=== PATIENT | female | born 1980 | race Caucasian/White ===

== ENCOUNTER 2022-03-04 14:18 | Emergency (ER) | payer OTHER ==
[2022-03-04 15:03] VITALS: TEMP 98.4
[2022-03-04] MEDS ORDERED: FLUORESCEIN STRIPS 1 MG STRIP LEFT EYE ONE (16:09)
[2022-03-04] MEDS ORDERED: KETOROLAC 15 MG/ML 1 ML VIAL IM STA (16:09)
[2022-03-04] MEDS ORDERED: PROPARACAINE 0.5% OPHTH DROPS 15 ML BTL LEFT EYE STA (16:17)
[2022-03-04] MEDS ORDERED: ACYCLOVIR 400 MG/10 ML CUP PO ONE (17:23)
[2022-03-04] MEDS ORDERED: ERYTHROMYCIN 5 MG/GM OPHTH OINT 3.5 GM TUBE LEFT EYE STA (17:24)
--- NOTE | 2022-03-04 17:26 | ED ---
Eye Problem HPI - General Chief complaint: Eye Problems Stated complaint: L eye issue Time Seen by Provider: 03/04/22 15:19 Source: patient Mode of arrival: ambulatory Limitations: no limitations - History of Present Illness Initial comments: Patient is a 41-year-old female who presents to the emergency department with a chief complaint of left eye pain. Patient states symptoms started yesterday when she woke up. There is some pain with eye movement. She denies injury and trauma to the eye. She also reports redness of eye with clear drainage from the eye, blurry vision, and sensitivity to light. She denies double vision, upper respiratory symptoms. Denies contact lens use. - Related Data Home Medications Medication Instructions Recorded Confirmed Acetaminophen [Tylenol] 325 cap PO Q4H PRN 03/04/22 03/04/22 Multivitamin/Iron/Folic Acid 1 tab PO DAILY 03/04/22 03/04/22 [Centrum Women Tablet] Pregabalin 100 mg PO BID 03/04/22 03/04/22 Sertraline [Zoloft] 100 mg PO PC-LUNCH 03/04/22 03/04/22 Previous Rx's Medication Instructions Recorded Acyclovir [Zovirax] 400 mg PO 5XD #25 tablet 03/04/22 Ibuprofen [Motrin] 800 mg PO Q6HR PRN #30 tab 03/04/22 Allergies Allergy/AdvReac Type Severity Reaction Status Date / Time fluconazole [From Diflucan] Allergy Rash/Hives Verified 03/04/22 17:20 Penicillins Allergy Rash/Hives Verified 03/04/22 17:20 Sulfa (Sulfonamide Allergy Rash/Hives Verified 03/04/22 17:20 Antibiotics) sulfamethoxazole Allergy Rash/Hives Verified 03/04/22 17:20 [From Bactrim] trimethoprim [From Bactrim] Allergy Rash/Hives Verified 03/04/22 17:20 Review of Systems ROS Statement: Those systems with pertinent positive or pertinent negative responses have been documented in the HPI. ROS Other: All systems not noted in ROS Statement are negative. Past Medical History Past Medical History: No Reported History History of Any Multi-Drug Resistant Organisms: None Reported Past Surgical History: Section Past Psychological History: No Psychological Hx Reported Smoking Status: Never smoker Past Alcohol Use History: None Reported Past Drug Use History: None Reported General Exam Limitations: no limitations General appearance: alert, in no apparent distress Head exam: Present: atraumatic, normocephalic, normal inspection Eye exam: Present: PERRL, EOMI, conjunctival injection (left ). Absent: normal appearance, scleral icterus, periorbital swelling, periorbital tenderness Pupils: Present: normal accommodation ENT exam: Present: normal oropharynx Respiratory exam: Present: normal lung sounds bilaterally. Absent: respiratory distress, wheezes, rales, rhonchi, stridor Cardiovascular Exam: Present: regular rate, normal rhythm, normal heart sounds. Absent: systolic murmur, diastolic murmur, rubs, gallop, clicks Neurological exam: Present: alert, oriented X3, CN II-XII intact Psychiatric exam: Present: normal affect, normal mood Skin exam: Present: warm, dry, intact, normal color. Absent: rash Course Vital Signs 03/04/22 03/04/22 15:01 17:53 Temperature 98.4 F Pulse Rate 81 71 Respiratory 16 18 Rate Blood Pressure 143/89 138/99 O2 Sat by Pulse 97 98 Oximetry Medical Decision Making - Medical Decision Making This is a 41-year-old presenting with left eye pain. There is no periorbital tenderness or swelling. PERRL. Banuelos lamp examination reveals dendritic lesion over the left pupil. Denies history of oral and genital herpes. She does admit to history of chickenpox. Patient will be treated with acyclovir. First dose given in the emergency department. Patient also given erythromycin ointment prophylactically. 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 Return parameters discussed. Dr. Cleaning is my attending. 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 Apply ointment every 8 hours for the next 3-5 days or until further instructed by ophthalmology. Please follow up with ophthalmology in one to 2 days. Return to the emergency department if you experience new, concerning, or worsening symptoms. Prescriptions: Ibuprofen [Motrin] 800 mg PO Q6HR PRN #30 tab PRN Reason: Pain Acyclovir [Zovirax] 400 mg PO 5XD #25 tablet Is patient prescribed a controlled substance at d/c from ED?: No Referrals: None,Stated [Primary Care Provider] - 1-2 days Time of Disposition: 17:26
[2022-03-04 17:55] VITALS: BP 138/99; PULSE 71; RESP 18
== END 2022-03-04 17:55 | disposition home or self-care (01) ==
LOC: EC 14:18
DX: B00.52 Herpesviral keratitis (principal); Z88.0 Allergy status to penicillin; Z88.2 Allergy status to sulfonamides
CPT/HCPCS: 99283; 96372; J1885

== ENCOUNTER → 2023-01-14 | Outpatient (CLI) | payer OTHER ==
--- NOTE | 2023-01-14 09:09 | MR ---
EXAMINATION TYPE: MR lumbar spine wo con DATE OF EXAM: 01/14/2023 COMPARISON: Lumbar spine radiograph 12/27/2022 HISTORY: Lower back pain into legs TECHNIQUE: Multiplanar, multisequence images of the lumbar spine were acquired without IV contrast. FINDINGS: Lumbar segments are intact. No paraspinal masses are identified. Conus medullaris has a normal appe arance. Mild levocurvature of the lumbar spine with apex at L3. L1-L2: Broad-based disc bulge with bilateral facet arthropathy resulting in mild central canal stenos is. No significant neural foraminal stenosis. L2-L3: Broad-based disc bulge with bilateral facet arthropathy resulting in mild central canal stenos is. No significant neural foraminal stenosis. Posterior right facet joint cyst measuring up to 6 mm. L3-L4: Broad-based disc bulge with bilateral facet arthropathy resulting in mild central canal stenos is. Mild bilateral neural foraminal stenosis. L4-L5: Broad-based disc bulge with bilateral facet arthropathy resulting in moderate central canal st enosis. Mild bilateral neural foraminal stenosis. L5-S1: Asymmetric left foraminal zone disc bulge. Bilateral facet arthropathy with left greater than right. No significant central canal stenosis. There is severe left neural foraminal stenosis. The rig ht neural foramen is patent. IMPRESSION: 1. No disc herniation. 2. Moderate multilevel degenerative disc disease and facet arthropathy. This is most pronounced at L4 -L5 with moderate central canal stenosis secondary to disc bulge with facet arthropathy. Additionally there is severe left neural foraminal stenosis at L5-S1 secondary to asymmetric disc bulge with face t arthropathy. 3. 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
== END | disposition home or self-care (01) ==
LOC: RADMRIMAIN 06:48
PROVIDERS: ATTEND Internal Medicine
DX: M51.17 Intervertebral disc disorders with radiculopathy, lumbosacral region (principal); M47.27 Other spondylosis with radiculopathy, lumbosacral region; M99.73 Connective tissue and disc stenosis of intervertebral foramina of lumbar region
CPT/HCPCS: 72148

== ENCOUNTER → 2023-04-18 | Outpatient (CLI) | payer OTHER ==
--- NOTE | 2023-04-18 09:33 | P.PAINPG ---
PQRS Measure Charge Sheet Comment: HISTORY OF PRESENT ILLNESS: A 42 yr old female as a referral from Dr Newton presents today w severe and chronic LBP x 4 mo secondary to spinal stenosis, DDD, spondylosis and facet arthropathy without myelopathy for evaluation. Pt states pain level is provoked at 6 /10 in intensity, constant, localized in the mid to lower lumbar spine, predominantly axial, stabbing in character w occasional shooting pain towards the LLE. Pain is provoked by standing for periods of 30 min or more. Pain is alleviated by chiropractic treatments semi monthly x 4 mo w last visit on Jun 2022, physician guided home exercises since Jun 2022, medications (Lyrica, Robaxin, Ibu), repositioning and rest. Oswestry axial pain score at 22. PMH: OA, HTN, GERD, MDD PSH: Section SH: Negative x3 FH: Non contributory All: See list Meds: See list REVIEW OF ORGAN SYSTEMS: CONSTITUTIONAL: No fevers or chills. No recent weight loss. NEUROLOGICAL: + numbness and tingling along the distal extremities. No seizure disorders or headaches. MUSCULOSKELETAL: + pain PSYCHIATRIC: Denies current depression or suicidal thoughts. Physical Examinations : Constitutional : Cooperative , not in acute distress . Neurologic : Cranial nerve II to XII intact. No focal neurological deficits. Psychiatric : alert & oriented x 3. Matching mood & appropriate affect. Judgment & insight intact. Musculoskeletal : Cervical Spine Motor strength in the deltoid and biceps: Normal right side. Normal Left side Motor strength biceps and the wrist extensors: Normal right side . Normal left side Motor strength in the triceps muscle: Normal right side. Normal left side Deep tendon reflexes: Normal at the biceps. Normal at Brachioradialis. Normal at triceps Vertebral body tenderness to deep palpation over Cervical facet loading test: positive bilaterally Spurling test: positive bilaterally Neck distraction test: positive bilaterally Freddie sign: positive bilaterally Lumbar spine Motor strength lower extremities ,thigh and legs 5/5 Right side , 5/5 Left side Deep tendon reflexes : Normal Knee J erk. Normal Ankle Jerk Vertebral body tenderness over L4 Peck Test positive Lumbar facet Loading Test: positive Right / positive Left Range of motion of the lumbar spine Flexion 30 degrees, extension 10 degrees Straight Leg Raise test: Left/ Right positive at 35 degrees Selvin test: positive right / positive left. Severe tenderness over the Sacroiliac joint on the Right / Left sides Kristina test: positive bilaterally Seated flexion test: positive bilaterally. Sacral spine : Severe tenderness over the Sacroiliac joint: right side / left side Range of motion: Flexion of the lumbar spine <60 degrees Range of motion: Extension of the lumbar spine <20 degrees Gaenslen's Test positive Selvin test: positive right side / left side Thigh Thrust Test Sacral Thrust Test Imaging: MRI noncontrast of the lumbar spine from 01/14/23 reviewed Assessment/ Plan : Lumbar stenosis, lumbar DDD Recommendation of TINO L4-L5 #1. May need a series of injections for optimal pain relief. Risks, benefits of procedure discussed and patient verbalized understanding. Admits to anti- coagulant use or medical history of diabetes. Protocol for discontinuation/ continuation of medications rodríguez procedure discussed. All questions answered. I have spent greater than 30 minutes on patient care today. Dr Barlow was available by phone for the evaluation of this patient. The time was used to review the medical records including relevant urine studies and Prescription history (MAPs), review of the available imaging, evaluation and examination of the patient, coordination of care with the medical staff and if applicable referring physicians, as well as creation of the medical record PQRS Narrative: Smoking Status Never smoker Home Medications: Ambulatory Orders Acetaminophen [Tylenol] 325 cap PO Q4H PRN 03/04/22 Acyclovir [Zovirax] 400 mg PO 5XD #25 tablet 03/04/22 Ibuprofen [Motrin] 800 mg PO Q6HR PRN #30 tab 03/04/22 Multivitamin/Iron/Folic Acid [Centrum Women Tablet] 1 tab PO DAILY 03/04/22 Pregabalin 100 mg PO BID 03/04/22 Sertraline [Zoloft] 100 mg PO PC-LUNCH 03/04/22 Ibuprofen [Motrin] 800 mg PO Q6HR #30 tab 12/27/22 methocarbamoL [Methocarbamol] 750 mg PO QID PRN #16 tablet 12/27/22 Controlled Substance Measures - Controlled Substance Measures Is patient prescribed a controlled substance at discharge?: No
[2023-04-18 09:39] VITALS: BP 162/97; PULSE 96; RESP 15; TEMP 98.6
== END ==
LOC: PNWHC3 08:54
PROVIDERS: ATTEND Specialist
DX: M51.16 Intervertebral disc disorders with radiculopathy, lumbar region (principal); M48.061 Spinal stenosis, lumbar region without neurogenic claudication; M19.90 Unspecified osteoarthritis, unspecified site; I10 Essential (primary) hypertension; K21.9 Gastro-esophageal reflux disease without esophagitis; F32.9 Major depressive disorder, single episode, unspecified; Z88.0 Allergy status to penicillin; Z88.2 Allergy status to sulfonamides; Z88.1 Allergy status to other antibiotic agents; Z88.8 Allergy status to other drugs, medicaments and biological substances
CPT/HCPCS: 99211

== ENCOUNTER 2023-04-28 06:32 | Day surgery (SDC) | payer OTHER ==
[2023-04-22 12:57] VITALS: BMI 47.0
[2023-04-28] MEDS ORDERED: LACTATED RINGERS 1,000 ML IV SCH (07:01)
[2023-04-28 07:29] VITALS: TEMP 97.8
[2023-04-28] MEDS ORDERED: IOPAMIDOL M200 10 ML VIAL ONE (08:06)
[2023-04-28] MEDS ORDERED: methylPREDNISolone ACETATE 80 MG/ML 1 ML VIAL ONE (08:06)
--- NOTE | 2023-04-28 08:12 | P.PCN ---
Date of Procedure: 04/28/23 Procedure(s) Performed: PREOPERATIVE DIAGNOSIS: 1- Lumbar Degenerative Disc Diseases 2-Lumbar spondylosis with Facet arthropathy without myelopathy. 3-lumbar spinal stenosis POSTOPERATIVE DIAGNOSIS: 1-lumbar degenerative disc disease. 2-lumbar spondylosis with facet arthropathy without myelopathy. 3-lumbar spinal stenosis. PROCEDURE 1. Lumbar epidural steroid injection under fluoroscopic guidance at the L4-5 level. (Fluoroscopy imaging was available in radiology department) 2. Lumbar epidurogram. ANESTHESIA: Lidocaine 1% 3 and then only. EBL: Minimal PROCEDURE INDICATION: The patient with low back pain and radiculitis symptoms unresponsive to conservative treatment. Fluoroscopy was used to optimize visualization of the needle placement and to maximize safety. PROCEDURE DESCRIPTION / TECHNIQUE: The patient was seen and identified in the preoperative area. Risks, benefits, complications including but not limited to infections ,bleeding ,allergic reaction to the medications ,nerve damage and not complete pain releife , and alternatives were discussed with the patient. The patient agreed to proceed with the procedure and signed the consent, and vital signs were stable. Patient was taken to the OR and time out was completed. The patient was placed in the prone position on procedure table and a pillow was placed under the abdomen to reduce lumbar lordosis. The lumbosacral area was prepped and draped in the usual sterile fashion.ere closely monitored during the procedure. Vital signs was monitered during the entire procedure. Using anterior-posterior fluoroscopy, the L4-5 interlaminar space was identified and the skin over this site was marked and then infiltrated with 1% lidocaine subcutaneously. Subsequently, a 18-gauge 6 inches long Tuohy epidural needle was inserted and advanced toward the epidural space using the ``Loss of resistance technique and guided by AP and lateral fluoroscopy. The correct needle position in the epidural space was verified with the injection of 2 mL of the water soluble contrast dye Isovue 200 contrast and observing an excellent epidurogram with the epidural spread of the dye, after negative aspiration for blood and CSF and in the absence of paresthesias. Again after negative aspiration, a 6 ml mixture containing 80 mg of Depo-medrol ( Preservetive Free ), and 2 ml of preservative free Normal Saline, and 2 ml of preservative free lidocaine 1% solution was injected and a washout of epidurogram was seen. Needle was withdr awn intact, skin was cleansed, and bandages were applied. COMPLICATIONS: None DISPOSITION / PLANS: The patient was placed in a supine position and transferred to the recovery area in a stable condition for observation. There was no evidence of lower extremity motor or sensory deficit after the procedure. Patient was discharged from the recovery room after meeting discharge criteria. Home discharge instructions were given to the patient by the staff. The patient was reexamined prior to discharge. The patient will schedule a follow up in the clinic in 2-4 weeks.
[2023-04-28 08:46] VITALS: BP 141/83; PULSE 71; RESP 20
--- NOTE | 2023-04-28 09:43 | FL ---
EXAMINATION TYPE: FL guided pain mgmt statistic DATE OF EXAM: 04/28/2023 FLUOROSCOPY Fluoroscopy time of 2.9 seconds seconds was used during lumbar epidural steroid injection. 1 image/s document/s the procedure. DAP [id number] mGycm2.
== END 2023-04-28 08:45 | disposition home or self-care (01) ==
LOC: ORPAIN 06:32
PROVIDERS: ATTEND Specialist
DX: M51.16 Intervertebral disc disorders with radiculopathy, lumbar region (principal); M47.26 Other spondylosis with radiculopathy, lumbar region; M48.061 Spinal stenosis, lumbar region without neurogenic claudication; Z88.2 Allergy status to sulfonamides; Z88.0 Allergy status to penicillin
CPT/HCPCS: 81025; 62323; J1040; Q9966

== ENCOUNTER → 2023-05-19 | Outpatient (CLI) | payer OTHER ==
[2023-05-19 09:21] VITALS: BP 131/86; PULSE 97; RESP 16; TEMP 97.7
--- NOTE | 2023-05-19 13:39 | P.PAINPG ---
PQRS Measure Charge Sheet Comment: HISTORY OF PRESENT ILLNESS: A 42 yr old female presents today w severe and chronic LBP x 4 mo secondary to spinal stenosis, DDD, spondylosis and facet arthropathy without myelopathy for evaluation s/p AMRIK L4-L5 #1. Pt states she experienced 0 % pain relief x 3 wks s/p procedure. Pt states pain level is provoked at 6 /10 in intensity, constant, localized in the mid to lower lumbar spine, predominantly axial, stabbing in character w occasional shooting pain towards the LLE. Pain is provoked by standing for periods of 30 min or more. Pain is alleviated by chiropractic treatments semi monthly x 4 mo w last visit on Jun 2022, physician guided home exercises since Jun 2022, medications, repositioning and rest. Oswestry axial pain score at 22. Interventional procedures included AMRIK L4-L5 x1 Medications include Lyrica, Robaxin, Ibu REVIEW OF ORGAN SYSTEMS: CONSTITUTIONAL: No fevers or chills. No recent weight loss. NEUROLOGICAL: + numbness and tingling along the distal extremities. No seizure disorders or headaches. MUSCULOSKELETAL: + pain PSYCHIATRIC: Denies current depression or suicidal thoughts. Physical Examinations : Constitutional : Cooperative , not in acute distress . Neurologic : Cranial nerve II to XII intact. No focal neurological deficits. Psychiatric : alert & oriented x 3. Matching mood & appropriate affect. Judgment & insight intact. Musculoskeletal : Cervical Spine Motor strength in the deltoid and biceps: Normal right side. Normal Left side Motor strength biceps and the wrist extensors: Normal right side . Normal left side Motor strength in the triceps muscle: Normal right side. Normal left side Deep tendon reflexes: Normal at the biceps. Normal at Brachioradialis. Normal at triceps Vertebral body tenderness to deep palpation over Cervical facet loading test: positive bilaterally Spurling test: positive bilaterally Neck distraction test: positive bilaterally Freddie sign: positive bilaterally Lumbar spine Motor strength lower extremities ,thigh and legs 5/5 Right side , 5/5 Left side Deep tendon reflexes : Normal Knee Jerk. Normal Ankle Jerk Vertebral body tenderness over L4 Peck Test positive Lumbar facet Loading Test: positive Right / positive Left Range of motion of the lumbar spine Flexion 30 degrees, extension 10 degrees Straight Leg Raise test: Left/ Right positive at 35 degrees Selvin test: positive right / positive left. Severe tenderness over the Sacroiliac joint on the Right / Left sides Gaenslen test: positive bilaterally Seated flexion test: positive bilaterally. Sacral spine : Severe tenderness over the Sacroiliac joint: right side / left side Range of motion: Flexion of the lumbar spine <60 degrees Range of motion: Extension of the lumbar spine <20 degrees Gaenslen's Test positive Selvin test: positive right side / left side Thigh Thrust Test Sacral Thrust Test Imaging: MRI noncontrast of the lumbar spine from 01/14/23 reviewed Assessment/ Plan : Lumbar stenosis, lumbar DDD Will follow up w Dr Newton to explore additional treatment options. All questions answered. I have spent greater than 30 minutes on patient care today. Dr Barlow was available by phone for the evaluation of this patient. The time was used to review the medical records including relevant urine studies and Prescription history (MAPs), review of the available imaging, evaluation and examination of the patient, coordination of care with the medical staff and if applicable referring physicians, as well as creation of the medical record PQRS Narrative: Smoking Status Never smoker Hx Alcohol Use (MH) No Home Medications: Ambulatory Orders Acetaminophen [Tylenol] 325 cap PO Q4H PRN 03/04/22 Ibuprofen [Motrin] 800 mg PO Q6HR PRN #30 tab 03/04/22 methocarbamoL [Methocarbamol] 750 mg PO QID PRN #16 tablet 12/27/22 Pregabalin 300 mg PO TID 04/22/23 Sertraline [Zoloft] 50 mg PO PC-LUNCH 04/22/23 lisinopriL [Zestril] 10 mg PO DAILY 04/22/23 traMADol HCL 50 mg PO Q6H PRN 04/22/23 Controlled Substance Measures - Controlled Substance Measures Is patient prescribed a controlled substance at discharge?: No
== END ==
LOC: PNWHC3 08:45
PROVIDERS: ATTEND Specialist
DX: M51.36 Other intervertebral disc degeneration, lumbar region (principal); M48.061 Spinal stenosis, lumbar region without neurogenic claudication; F12.90 Cannabis use, unspecified, uncomplicated; Z88.0 Allergy status to penicillin; Z88.2 Allergy status to sulfonamides; Z88.1 Allergy status to other antibiotic agents; Z88.8 Allergy status to other drugs, medicaments and biological substances
CPT/HCPCS: 99211

== ENCOUNTER 2023-10-01 16:16 | Emergency (ER) | payer OTHER ==
[2023-10-01 16:37] VITALS: PULSE 79; RESP 18; TEMP 98.6
--- NOTE | 2023-10-01 17:09 | ED ---
Nausea/Vomiting/Diarrhea HPI - General Chief complaint: Nausea/Vomiting/Diarrhea Stated complaint: vomitting Time Seen by Provider: 10/01/23 16:31 Source: patient, RN notes reviewed Mode of arrival: ambulatory Limitations: no limitations - History of Present Illness Initial comments: This is a 43-year-old female presents emergency department chief complaint of nausea and vomiting over the past 3 days. Patient denies abdominal pain, hematemesis, hematuria, increase in frequency or urgency, back or flank pain, chills, fevers. States that she traveled to [place] about 3 weeks ago. Denies family or friends with similar symptoms. Previous abdominal surgical history of 2 sections and abdominal cyst removal. States that she has not attempted taking any medications at home alleviate symptoms. She endorses infrequent marijuana use - Related Data Home Medications Medication Instructions Recorded Confirmed Acetaminophen [Tylenol] 325 cap PO Q4H PRN 03/04/22 05/19/23 Pregabalin 300 mg PO TID 04/22/23 05/19/23 Sertraline [Zoloft] 50 mg PO PC-LUNCH 04/22/23 05/19/23 lisinopriL [Zestril] 10 mg PO DAILY 04/22/23 05/19/23 traMADol HCL 50 mg PO Q6H PRN 04/22/23 05/19/23 Previous Rx's Medication Instructions Recorded Ibuprofen [Motrin] 800 mg PO Q6HR PRN #30 tab 03/04/22 methocarbamoL [Methocarbamol] 750 mg PO QID PRN #16 tablet 12/27/22 Ondansetron Odt [Zofran Odt] 4 mg PO Q8HR PRN #10 tab 10/01/23 Allergies Allergy/AdvReac Type Severity Reaction Status Date / Time fluconazole [From Diflucan] Allergy Rash/Hives Verified 10/01/23 16:37 Penicillins Allergy Rash/Hives Verified 10/01/23 16:37 Sulfa (Sulfonamide Allergy Rash/Hives Verified 10/01/23 16:37 Antibiotics) sulfamethoxazole Allergy Rash/Hives Verified 10/01/23 16:37 [From Bactrim] trimethoprim [From Bactrim] Allergy Rash/Hives Verified 10/01/23 16:37 Review of Systems ROS Statement: Those systems with pertinent positive or pertinent negative responses have been documented in the HPI. ROS Other: All systems not noted in ROS Statement are negative. Past Medical History Past Medical History: Hypertension Additional Past Medical History / Comment(s): BACK PAIN History of Any Multi-Drug Resistant Organisms: None Reported Past Surgical History: Section Additional Past Surgical History / Comment(s): 3-C-SEC-HAD ABD ABSCESS AFTER 2 OF THE [id number]-AATPMGSLB SURGERY. RK BILAT EYES Past Anesthesia/Blood Transfusion Reactions: No Reported Reaction Past Psychological History: Depression Smoking Status: Never smoker Past Alcohol Use History: None Reported Past Drug Use History: Marijuana - Past Family History Mother Family Medical History: Cancer General Exam Limitations: no limitations General appearance: alert, in no apparent distress Head exam: Present: atraumatic, normocephalic, normal inspection Eye exam: Present: normal appearance, PERRL, EOMI. Absent: scleral icterus, conjunctival injection, periorbital swelling ENT exam: Present: normal exam, mucous membranes moist Neck exam: Present: normal inspection. Absent: tenderness, meningismus, lympha denopathy Respiratory exam: Present: normal lung sounds bilaterally. Absent: respiratory distress, wheezes, rales, rhonchi, stridor Cardiovascular Exam: Present: regular rate, normal rhythm, normal heart sounds. Absent: systolic murmur, diastolic murmur, rubs, gallop, clicks GI/Abdominal exam: Present: soft, normal bowel sounds. Absent: distended, tenderness, guarding, rebound, rigid Extremities exam: Present: normal inspection, full ROM, normal capillary refill. Absent: tenderness, pedal edema, joint swelling, calf tenderness Back exam: Present: normal inspection Neurological exam: Present: alert, oriented X3, CN II-XII intact Psychiatric exam: Present: normal affect, normal mood Skin exam: Present: warm, dry, intact, normal color. Absent: rash Course Vital Signs 10/01/23 16:35 Temperature 98.6 F Pulse Rate 79 Respiratory 18 Rate Blood Pressure 185/81 O2 Sat by Pulse 98 Oximetry Medical Decision Making - Medical Decision Making Was pt. sent in by a medical professional or institution (, PA, PROJECT MGR, urgent care, hospital, or [facility]...) When possible be specific @ -No Did you speak to anyone other than the patient for history (EMS, parent, family, police, friend...)? What history was obtained from this source @ -No Did you review nursing and triage notes (agree or disagree)? Why? @ -I reviewed and agree with nursing and triage notes Were old charts reviewed (outside hosp., previous admission, EMS record, old EKG, old radiological studies, urgent care reports/EKG's, [facility] records)? Report findings @ -No old charts were reviewed Differential Diagnosis (chest pain, altered mental status, abdominal pain women, abdominal pain men, vaginal bleeding, weakness, fever, dyspnea, syncope, headache, dizziness, GI bleed, back pain, seizure, CVA, palpatations, mental health, musculoskeletal)? @ -Differential Abdominal Pain Women: Appendicitis, Cholecystitis, diverticulosis, ischemic bowel, pancreatitis, hepatitis, UTI, gastroenteritis, AAA, incarcerated hernia, bowel obstruction, constipation, inflammatory bowel, hepatitis, peptic ulcer disease, splenic infarction, perforated viscus, vulvitis, ovarian torsion, PID, kidney stone, placenta abruption, this is not meant to be an all-inclusive list EKG interpreted by me (3pts min.). @ -None X-rays interpreted by me (1pt min.). @ -None done CT interpreted by me (1pt min.). @ -None done U/S interpreted by me (1pt. min.). @ -None done What testing was considered but not performed or refused? (CT, X-rays, U/S, labs)? Why? @ -CT imaging the abdomen is considered but deferred at this time. Patient abdominal examination unremarkable, additionally patient is denying symptoms of abdominal pain. What meds were considered but not given or refused? Why? @ -None Did you discuss the management of the patient with other professionals (professionals i.e. , PA, PROJECT MGR, lab, RT, psych nurse, social secretary, pulp plant supervisor, teacher, equal employment opportunity officer, field nurse case manager)? Give summary @ -No Was smoking cessation discussed for >3mins.? @ -No Was critical care preformed (if so, how long)? @ -No Were there social determinants of health that impacted care today? How? (Homelessness, low income, unemployed, alcoholism, drug addiction, transportation, low edu. Level, literacy, decrease access to med. care, alf, rehab)? @ -No Was there de-escalation of care discussed even if they declined (Discuss DNR or withdrawal of care, Hospice)? DNR status @ -No What co-morbidities impacted this encounter? (DM, HTN, Smoking, COPD, CAD, Cancer, CVA, ARF, Chemo, Hep., AIDS, mental health diagnosis, sleep apnea, morbid obesity)? @ -None Was patient admitted / discharged? Hospital course, mention meds given and route, prescriptions, significant lab abnormalities, going to OR and other pertinent info. @ -Discharged. 43-year-old female with acute nausea and vomiting. On examination patient is noted to have clinical signs of dehydration. No other acute physical exam findings. Patient will be symptomatically treated with 2 L fluid bolus via IV and Zofran and Toradol. She will also be evaluated via laboratory studies. Patient sitting with this plan. On reevaluation, patient states that her feelings of nausea have markedly improved and has not gotten sick since being in the emergency department. Labs including CBC, CMP, amylase and lipase within normal limits. Patient will be sent a prescription for Zofran as needed over the next few days. Recommend that she continue to increase oral rehydration at home and following a diet consisting of bananas, rice, applesauce, toast, yogurt. Recommend the patient follows up with her primary care provider next week for further evaluation. All questions answered at bedside and strict return parameters discussed with the patient she is verbalized understanding. Case discussed with Dr. Schwarz. Undiagnosed new problem with uncertain prognosis? @ -No Drug Therapy requiring intensive monitoring for toxicity (Heparin, Nitro, Insulin, Cardizem)? @ -No Were any procedures done? @ -No Diagnosis/symptom? @ -Nausea and vomiting Acute, or Chronic, or Acute on Chronic? @ -acute Uncomplicated (without systemic symptoms) or Complicated (systemic symptoms)? @ -uncomplicated Side effects of treatment? @ -No Exacerbation, Progression, or Severe Exacerbation? @ -No Poses a threat to life or bodily function? How? (Chest pain, [place], [place], pneumonia, PE, COPD, DKA, ARF, appy, cholecystitis, CVA, Diverticulitis, Homicidal, Suicidal, threat to staff... and all critical care pts) @ -No - Lab Data Result diagrams: 10/01/23 17:20 10/01/23 18:00 Lab Results 10/01/23 10/01/23 10/01/23 Range/Units 17:09 17:20 18:00 WBC 11.8 H (3.8-10.6) k/uL RBC 5.26 (3.80-5.40) m/uL Hgb 14.1 (11.4-16.0) gm/dL Hct 44.3 (34.0-46.0) % MCV 84.4 (80.0-100.0) fL MCH 26.9 (25.0-35.0) pg MCHC 31.9 (31.0-37.0) g/dL RDW 14.8 (11.5-15.5) % Plt Count 345 (150-450) k/uL MPV 8.5 Neutrophils % 81 % Lymphocytes % 12 % Monocytes % 3 % Eosinophils % 3 % Basophils % 0 % Neutrophils # 9.6 H (1.3-7.7) k/uL Lymphocytes # 1.4 (1.0-4.8) k/uL Monocytes # 0.3 (0-1.0) k/uL Eosinophils # 0.3 (0-0.7) k/uL Basophils # 0.0 (0-0.2) k/uL Sodium 136 L (137-145) mmol/L Potassium 3.8 (3.5-5.1) mmol/L Chloride 106 (98-107) mmol/L Carbon Dioxide 24 (22-30) mmol/L Anion Gap 6 mmol/L BUN 5 L (7-17) mg/dL Creatinine 0.62 (0.52-1.04) mg/dL Est GFR (CKD-EPI)AfAm >90 (>60 ml/min/1.73 sqM) Est GFR (CKD-EPI)NonAf >90 (>60 ml/min/1.73 sqM) Glucose 99 (74-99) mg/dL Calcium 8.7 (8.4-10.2) mg/dL Total Bilirubin 0.5 (0.2-1.3) mg/dL AST 45 H (14-36) U/L ALT 30 (4-34) U/L Alkaline Phosphatase 66 (38-126) U/L Total Protein 6.5 (6.3-8.2) g/dL Albumin 3.8 (3.5-5.0) g/dL Amylase 50 (30-110) U/L Lipase 48 (23-300) U/L Urine Color Yellow Urine Appearance Cloudy H (Clear) Urine pH 8.5 H (5.0-8.0) Ur Specific Docena 1.018 (1.001-1.035) Urine Protein Trace H (Negative) Urine Glucose (UA) Negative (Negative) Urine Ketones 3+ H (Negative) Urine Blood Trace H (Negative) Urine Nitrite Negative (Negative) Urine Bilirubin Negative (Negative) Urine Urobilinogen 2.0 (<2.0) mg/dL Ur Leukocyte Esterase Negative (Negative) Urine RBC 4 (0-5) /hpf Urine WBC 1 (0-5) /hpf Ur Squamous Epith Cells 4 (0-4) /hpf Urine Bacteria Rare H (None) /hpf Urine Mucus Occasional H (None) /hpf Disposition Clinical Impression: Nausea and vomiting Disposition: HOME SELF-CARE Condition: Good Instructions (If sedation given, give patient instructions): Acute Nausea and Vomiting (ED) Additional Instructions: Return the emergency department if her symptoms worsen or not improve. Take Zofran as needed over the next few days for nausea. Increase oral rehydration. Follow diet as described in discharge paperwork. Prescriptions: Ondansetron Odt [Zofran Odt] 4 mg PO Q8HR PRN #10 tab PRN Reason: Nausea Is patient prescribed a controlled substance at d/c from ED?: No Referrals: Merced Harrington MD [Primary Care Provider] - 1-2 days Time of Disposition: 18:32
[2023-10-01 17:37] LABS: Basophils % (A) 0 %; Eosinophils # (A) 0.3 k/uL (0-0.7); Eosinophils % (A) 3 %; HCT 44.3 % (34.0-46.0); HGB 14.1 gm/dL (11.4-16.0); Lymphocytes # (A) 1.4 k/uL (1.0-4.8); Lymphocytes % (A) 12 %; MCH 26.9 pg (25.0-35.0); MCHC 31.9 g/dL (31.0-37.0); MCV 84.4 fL (80.0-100.0); Mean Platelet Volume 8.5; Monocytes # (A) 0.3 k/uL (0-1.0); Monocytes % (A) 3 %; Neutrophils # (A) 9.6 k/uL (1.3-7.7); Neutrophils % (A) 81 %; Platelet Count 345 k/uL (150-450); RBC 5.26 m/uL (3.80-5.40); RDW 14.8 % (11.5-15.5); WBC 11.8 k/uL (3.8-10.6)
[2023-10-01] MEDS: SODIUM CHLORIDE 0.9% 2,000 ML IV STA (17:49)
[2023-10-01] MEDS: KETOROLAC 15 MG/ML 1 ML VIAL IVP STA (17:50)
[2023-10-01] MEDS: ONDANSETRON 4 MG/2 ML VIAL IVP STA (17:50)
[2023-10-01 17:54] LABS: Appearance,Urine Cloudy (Clear); Bacteria,Urine Rare /hpf; Bilirubin,Urine Negative (Negative); Blood,Urine Trace (Negative); Color,Urine Yellow; Glucose,Urine (UA) Negative (Negative); Ketones,Urine 3+ (Negative); Leukocyte Esterase,Urine Negative (Negative); Mucus,Urine Occasional /hpf; Nitrite,Urine Negative (Negative); PH, Urine 8.5 (5.0-8.0); Protein,Urine Trace (Negative); RBC,Urine 4 /hpf (0-5); Specific Gravity,Urine 1.018 (1.001-1.035); Squamous Epithelial Cell,Urine 4 /hpf (0-4); WBC,Urine 1 /hpf (0-5)
[2023-10-01 18:21] LABS: ALT 30 U/L (4-34); AST 45 U/L (14-36); African American GFR (CKD) >90 (>60 ml/min/1.73 sqM); Albumin 3.8 g/dL (3.5-5.0); Alkaline Phosphatase 66 U/L (38-126); Amylase 50 U/L (30-110); Anion Gap 6 mmol/L; Blood Urea Nitrogen 5 mg/dL (7-17); Calcium 8.7 mg/dL (8.4-10.2); Carbon Dioxide 24 mmol/L (22-30); Chloride 106 mmol/L (98-107); Glucose 99 mg/dL (74-99); Lipase 48 U/L (23-300); Non-African American GFR(CKD) >90 (>60 ml/min/1.73 sqM); Potassium 3.8 mmol/L (3.5-5.1); Sodium 136 mmol/L (137-145); Total Bilirubin 0.5 mg/dL (0.2-1.3); Total Protein 6.5 g/dL (6.3-8.2)
[2023-10-01 18:59] VITALS: BP 141/90
== END 2023-10-01 18:59 | disposition home or self-care (01) ==
LOC: EC 16:16
DX: R11.2 Nausea with vomiting, unspecified (principal); E86.0 Dehydration; Z88.0 Allergy status to penicillin; Z88.2 Allergy status to sulfonamides
CPT/HCPCS: 36415; 80053; 82150; 83690; 85025; 81001; 99284; 96374; 96375; 96361; J2405; J1885

== ENCOUNTER → 2023-10-27 | Outpatient (CLI) | payer OTHER ==
--- NOTE | 2023-10-27 13:03 | CT ---
EXAMINATION TYPE: CT lumbar spine wo con CT DLP: 1771.8 mGycm, Automated exposure control for dose reduction was used. DATE OF EXAM: 10/27/2023 12:52 PM COMPARISON: Lumbar spine radiograph 10/05/2023, MRI lumbar spine 01/14/2023. CLINICAL INDICATION:Female, 43 years old with history of M47.816 SPONDYLOSIS W/O MYELOPATHY; PHH, low back pain TECHNIQUE: Multiple axial images were obtained from the midportion of T11 through the sacroiliac daniela nts. Soft tissue and bone windows in coronal and sagittal planes were obtained and reviewed. Contrast used: none. Oral contrast used: none. FINDINGS: Alignment: There are 5 lumbar type vertebral bodies. No spondylolisthesis. Mild levocurvature of the lumbar spine with apex at L3. Bone: No evidence of fracture is identified. Multilevel anterior osteophytosis and endplate sclerosi s. Mild degenerative changes of both SI joints with vacuum disc disease identified. Discs: Multilevel disc space narrowing with vacuum disc disease and posterior calcification of the di sc. T12-L1: No spinal canal or neural foraminal stenosis is identified. L1-L2: Broad-based disc bulge with posterior calcification. Minimal central canal stenosis. Bilateral facet arthropathy with no significant neural foraminal stenosis. L2-L3: Broad-based disc bulge with posterior calcification resulting in mild central canal stenosis. Bilateral facet arthropathy without significant neural foraminal stenosis. Known posterior right face t joint cyst is better appreciated on MRI. L3-L4: Broad-based disc bulge with posterior calcification. Resultant mild central canal stenosis. Bi lateral facet arthropathy with mild bilateral neural foraminal stenosis. L4-L5: Broad base disc bulge with bilateral facet arthropathy resulting in moderate central canal corinne nosis. [id number] left and mild right neural foraminal stenosis. L5-S1: Broad-based disc bulge without significant central canal stenosis. Bilateral facet arthropathy with left greater than right. Severe left and mild right neural foraminal stenosis. Other: Cholelithiasis. IMPRESSION: 1. No evidence for spinal fracture. 2. Moderate multilevel degenerative disc disease and facet arthropathy as described above. Most prono unced at L4-L5 with moderate central canal stenosis. Again severe left neural foraminal stenosis seco ndary to facet arthropathy at L5-S1. 3. Cholelithiasis.
== END | disposition home or self-care (01) ==
LOC: RADCTMAIN 12:27
PROVIDERS: ATTEND Orthopaedic Surgery
DX: M47.816 Spondylosis without myelopathy or radiculopathy, lumbar region (principal); M51.36 Other intervertebral disc degeneration, lumbar region; M48.061 Spinal stenosis, lumbar region without neurogenic claudication; M47.817 Spondylosis without myelopathy or radiculopathy, lumbosacral region; K80.20 Calculus of gallbladder without cholecystitis without obstruction
CPT/HCPCS: 72131

== ENCOUNTER → 2023-12-19 | Outpatient (CLI) | payer OTHER ==
--- NOTE | 2023-12-19 11:51 | US ---
EXAMINATION TYPE: US abdomen complete DATE OF EXAM: 12/19/2023 COMPARISON: NONE CLINICAL INDICATION: Female, 43 years old with history of N92.6 IRREG MENSES,R11.14 BILLIOUS VOMITING ,M54.50; Vomiting with menses TECHNIQUE: Multiple sonographic images of the abdomen are obtained. FINDINGS: EXAM MEASUREMENTS: Liver Length: 18.2 cm Gallbladder Wall: 0.3 cm CBD: non-vis Spleen: 8.8 cm Right Kidney: 9.9x4.5x5.3 cm Left Kidney: 11.0x5.1x4.9 cm [employer] NOTES: Pancreas: Tail obscured by overlying bowel gas Liver: hepatomegaly and mild fatty infiltration Gallbladder: one mobile stone measuring up to 1cm. There is borderline wall thickening. No perichol ecystic fluid. Evidence for sonographic Shea's sign: No CBD: Obscured by overlying bowel gas Spleen: wnl Right Kidney: wnl Left Kidney: wnl Upper IVC: wnl Abd Aorta: wnl exam limited by bowel gas and body habitus IMPRESSION: 1. Hepatomegaly with mild fatty infiltration. 2. Cholelithiasis. [facility], , 12/19/2023 11:49 AM
--- NOTE | 2023-12-19 11:57 | US ---
EXAMINATION TYPE: US pelvis complete transvag DATE OF EXAM: 12/19/2023 COMPARISON: NONE CLINICAL INDICATION: Female, 43 years old with history of N92.6 IRREG MENSES,R11.14 BILLIOUS VOMITING ,M54.50; vomiting with menses TECHNIQUE: Transvaginal (TV) and Transabdominal (TA) . Transabdominal sonographic images of the pel vis were acquired. Transvaginal sonographic images were medically necessary to better assess the fol lowing anatomy: Ovaries Date of LMP: 12/11/23 EXAM MEASUREMENTS: Uterus: 9.6x4.7x5.9 cm Endometrial Stripe: 0.8 cm Right Ovary: obscured by bowel Left Ovary: 3.5x2.6x2.6 cm 1. Uterus: Anteverted 2. Endometrium: wnl 3. Right Ovary: Obscured by overlying bowel gas 4. Left Ovary: dominant follicle vs. follicular cyst 5. Bilateral Adnexa: Obscured by overlying bowel gas 6. Posterior cul-de-sac: wnl limited by bowel gas IMPRESSION: 1. Unremarkable pelvic ultrasound. [facility], , 12/19/2023 11:55 AM
== END | disposition home or self-care (01) ==
LOC: RADUSWWP 07:13
PROVIDERS: ATTEND Family Medicine
DX: K80.20 Calculus of gallbladder without cholecystitis without obstruction (principal); K76.0 Fatty (change of) liver, not elsewhere classified; N92.6 Irregular menstruation, unspecified; R16.0 Hepatomegaly, not elsewhere classified; R11.14 Bilious vomiting
CPT/HCPCS: 76700; 76830; 76856

== ENCOUNTER → 2023-12-19 | Outpatient (CLI) | payer OTHER | END | disposition home or self-care (01) | LOC: LABPAT 09:13 | PROVIDERS: ATTEND Orthopaedic Surgery | DX: Z01.812 Encounter for preprocedural laboratory examination (principal); Z22.322 Carrier or suspected carrier of Methicillin resistant Staphylococcus aureus; M47.26 Other spondylosis with radiculopathy, lumbar region; M48.061 Spinal stenosis, lumbar region without neurogenic claudication | CPT/HCPCS: 36415; 86850; 86900; 86901; 87070 ==

== ENCOUNTER → 2023-12-20 | Outpatient (CLI) | payer OTHER ==
--- NOTE | 2023-12-20 15:49 | MM ---
Reason for Exam: Additional evaluation requested from prior study. Baseline mammogram. Patient History: Menarche at age 10. First Full-Term at age 22. Maternal grandmother had breast cancer at or over age 50. Last menstrual period: 12/10/2023 Risk Values: Rena 5 year model risk: 0.7%. NCI Lifetime model risk: 8.6%. Prior Study Comparison: Patient's first Mammogram. No prior studies available for comparison. Tissue Density: There are scattered areas of fibroglandular density. Findings: Analyzed By CAD. The pattern is symmetrical. Few scattered punctate calcifications are present bilaterally. No suspicious groups of microcalcifications, spiculated or lobular masses, architectural distortion or other secondary signs of malignancy are mammographically apparent. Overall Assessment: Benign, BI-RAD 2 Management: Screening Mammogram of both breasts in 1 year. A negative mammogram report should not preclude additional follow up of suspicious palpable abnormalities. Patient should continue monthly self breast exam. A clinical breast exam by your physician is recommended on an annual basis and results should be correlated with mammographic findings. Note on Rena scores and lifetime risk: 1. A Rena score greater than 3% is considered moderate risk. If this is the case, consider specialist referral to assess eligibility for a risk reducing agent. 2. If overall lifetime risk for the development of breast cancer is 20% or higher, the patient may qualify for future screening with alternating mammogram and breast MRI. [facility], , 12/20/2023 3:06 PM. Electronically signed and approved by: Wil Graf D.O. Radiologis
--- NOTE | 2023-12-20 21:03 | US ---
EXAMINATION TYPE: US thyroid st tissue head/neck DATE OF EXAM: 12/20/2023 COMPARISON: NONE CLINICAL INDICATION: Female, 43 years old with history of R79.89 ABNORMAL LAB TESTS; abnormal labs GLAND SIZE: Right Lobe: 4.5 x 1.2 x 1.7 cm Overall Parenchyma: homogeneous Left Lobe: 4.1 x 1.1 x 1.7 cm Overall Parenchyma: homogeneous Isthmus Thickness: 0.3 cm NODULES RIGHT: # of nodules measured on right: 0 LEFT: # of nodules measured on left: sub-centimeter nodule upper pole ISTHMUS: # of nodules measured in the isthmus: 0 Bilateral neck scanned, no evidence of lymphadenopathy. IMPRESSION: 1. No suspicious thyroid nodules. 2017 ACR TI-RADS LEVEL: TR-RADS 1 - BENIGN: No FNA *Highest TI-RADS level nodule reported [facility], , 12/20/2023 9:00 PM
== END | disposition home or self-care (01) ==
LOC: RADUSWWP 14:35
PROVIDERS: ATTEND Family Medicine
DX: R79.89 Other specified abnormal findings of blood chemistry
CPT/HCPCS: 76536; 77062; 77066

== ENCOUNTER → 2023-12-20 | Outpatient (CLI) | payer OTHER | END | disposition home or self-care (01) | LOC: RADMAMWWP 14:32 | PROVIDERS: ATTEND Family Medicine | DX: Z53.9 Procedure and treatment not carried out, unspecified reason (principal) ==

== ENCOUNTER 2023-12-26 05:37 | Observation (INO) | payer OTHER ==
[2023-12-16 13:52] VITALS: BMI 46.2
--- NOTE | 2023-12-25 20:25 | P.HPOR ---
History of Present Illness H&P Date: 12/19/23 .D:Date: 12/19/23 : 08:52am .T:Title: *[facility] Age: 43 year Height: 5'7" Weight: 300 lbs BP:125/80 BMI: 46.99 kg/m2 Occupation: Unemployed VAS: 6 CC: Re-check on low back pain / Review CT scan lumbar spine results HISTORY: Lenka presents today for follow up and pre op visit for her L3-S1 decompression and fusion. SHe continues to have low back pain and leg pain that travels down to her feet. She states no improvement with her current medical regiment or treatments. She has completed PT, HEP, Rx, OTC and injections without relief of her sx and she continues to get worse. She states she is ready for surgery. 11/02/23: Ms. Huertas presents to the office today, 11/02/23, for re-evaluation of low back pain and CT review. CT was done on 10/27/23 at [facility] of her Lumbar spine w/o contrast. She states continued low back pain and LE issues. She states it is difficult to walk distances. She states she has cramping in her calves. She states severe low back pain. She denies any other sx at this time. No trauma. Otherwise, the patient denies any f/c/sob/cp, perineal numbness or tingling, bowel, or bladder incontinence/retention. Patient is ambulatory independently. The patients past social, medical, family, surgical history, as well as review of systems, have been reviewed. Please refer to the History and Physical form that has been scanned into our electronic medical record system. 16 points review of systems completed and as stated in HPI, all other systems reviewed are negative. PAST TREATMENTS: PAST IMAGING: - Yes TRAUMA RELATED: - No WORK RELATED: - No PT IN LAST 6 MONTHS: - Yes; no relief PHYSICIAN DIRECTED HOME EXERCISE PROGRAM: - Yes; no relief ACTIVITY MODIFICAITON: - Yes MEDICATIONS: - ALTERNATIVE INTERVENTIONS (CHIROPRACTIC, ACCUPUNCTURE, MASSAGE, RICE): - Yes (home heat/ice therapies & rest); mild, temporary relief BRACING: - No INJECTIONS (AMRIK, TF, RFA): -YES, no help. AMRIK made worse MEDICAL HISTORY: Past Medical History: REVIEWED STATED IN CHART Past Surgical History: REVIEWED STATED IN CHART Social History: REVIEWED STATED IN CHART SMOKING: ETOH: None SUBSTANCES: None Family History: REVIEWED STATED IN CHART Current Medications: P1Rx: iron 325 mg (65 mg iron) tablet Ref: 0 Rx: lisinopriL 10 mg tablet Ref: 0 Rx: methocarbamoL 750 mg tablet Ref: 0 Rx: pravastatin 20 mg tablet Ref: 0 Rx: traMADol 50 mg tablet Ref: 0 Rx: Zoloft 100 mg tablet Ref: 0 Rx: gabapentin 300 mg capsule Ref: 0 P1 PHYSICAL EXAM: General: AOX3, NAD, Well hydrate, well nourished HEENT: No lumps or masses Extremities: No color changes, no pooling INTEGUMENT: Appearance:Normal color and turgor Surgical Incisions: None Hairy Patches: ABSENT Dorsal Skin Dimples: Normal [employer] spots: ABSENT PALPATION: TTP Midline:NO Paracervical:NO Parathoracic:NO Paralumbar:YES SIJ TESTING (R/L): YES/YES * [place] Finger: +/+ * FABER4:+/+ * Compression:+/+ * Distraction:-/ - * Thigh thrust:+/+ * Hip thrust: +/+ POSTURAL BALANCE: Coronal:BALANCED Sagittal:BALANCED Shoulder height: LEVEL Pelvic Girdle: LEVEL ROM AND APPEARANCE: Neck: UNRESTRICTED Lumbar:RESTRICTED Shoulders: Symmetrical Hips: Symmetrical Knees: Symmetrical Hands: Symmetrical Feet: Symmetrical VASCULAR STATUS: PALPABLE PULSES B/L UE AND LE 2/4 RAD/ULNAR/DP/PT Edema: NONE NEUROLOGICAL EXAMINATION: Mental Status: Awake, alert, fully oriented with normal attention, concentration, and memory. Fluent appropriate speech. CRANIAL NERVES: I: Olfactory not assessed. II: Visual acuity normal, no visual field deficit noted with confrontation. III, IV: Normal pupillary reflexes & intact extraocular movements without nystagmus. V, : Intact symmetrical facial sensation. VII: Intact symmetrical facial motor movement: Hearing intact. IX, X: Intact gag, swallow, & normal voice. XI: Sternocleidomastoid, trapezius function intact. XII: Tongue midline with normal movements. TENSIONING: L'HERMITTE'S SIGN NEG SPURLUNG'S SIGN NEG CUBITAL COMPRESSION NEG TINELS AT WRIST POS SLR/CROSSED SLR NEG MOTOR EXAM (0-5/5, NT) Muscle appearance:Symmetrical, without signs of atrophy or dystrophy UPPER EXTREMITY RIGHT LEFT Shoulder Abduction 5 5 Biceps 5 5 Triceps 5 5 Wrist Extension 5 5 Hand Intrinsics 5 5 Statement Request Clerk 5 5 LOWER EXTREMITY RIGHT LEFT Hip Flexion 5 5 Knee Extension 5 5 Knee Flexion 5 5 Dorsiflexion 5 5 Plantarflexion 4 4 EHL 4 4 FHL 4 4 REFLEXES (0-4/2, NT): RIGHT LEFT Bicep 2 2 Brachioradialis 2 2 Triceps 2 2 Patellar 2 2 Achilles 1 2 PATHOLOGICAL REFLEXES: RIGHT LEFT HARDEN'S ABSENT ABSENT CLONUS ABSENT ABSENT BABINSKI ABSENT ABSENT RECTAL TONE: INTACT SENSATION (0-4, NT): Sensation intact to LT and Pain * C5-T1 distribution BUE * L2-S2 distribution BLE *Exceptions below* DERMATOMAL DEFICIT/RADICULAR PATTERN: L3-S1 B/L GAIT AND FUNCTIONAL EVALUATION: AMBULATORY AID NONE ROMBERG'S TEST INTACT HAND AND FINGER DEXTERITY INTACT YES DYSDIADOCHOKINESIA EXAM NEG B/L YES TOE/HEEL WALK INTACT WITH GOOD BALANCE YES SQUAT AND RISE W/O ASSISTANCE TO 60 DEG KNEE FLEXION YES SINGLE LEG STANCE INTACT TRENDELEN[place]G NEG IMAGING: CT Date: 10/27/23 Location: [facility] Region: LUMBAR Contrast: N FINDINGS: * Spondylosis of the lumbar spine with vacuum disc phenom at L3-S1 with L2-3 large disc osteophyte complex causing moderate central stenosis and lateral recess stenosis L3-4 disc collapse, mild to moderate central stenosis. Facet arthrosis that is severe b/l L5-S1 vacuum disc with retrolisthesis, facet arthropathy that is severe with overgrowth and osteophyte formation. There is disc herniation and arthropathy c ausing moderate to severe central stenosis with b/l foraminal stenosis, severe. Severe b/l facet arthrosis noted. No fractures or lesions IMPRESSION: It was my pleasure to have seen and examined Lenka. I reviewed the patient's clinical syndrome, physical findings, and imaging studies during the appointment today. It is my impression that the patient has a diagnosis of. 1.L3-S1 SPONDYLOSIS WITH STENOSIS AND RADICULOPATHY 2.NEUROGENIC CLAUDICATION 3.LOW BACK PAIN 4. LE WEAKNESS PLAN: DISCUSSION: -I have discussed withthe pt her clinical signs and sx as well as her CT today in office. Her options are conservative treatment in the form of medications, injections (facet blocks likey at L3-S1 b/l) followed by possible MBT vs surgical intervention in the form of a decompression and fusion. This could be first done at L5-S1 as this is the worst level, howevere she really needs it from L3-S1 due to the severe nature of her spondylosis, stenosis and propensity for failure if we only do one level. She understands. SURGICAL RECOMMENDATION -L3-S1 decompression and fusion THERAPIES -Cont with PT as able. -Cont. with home exercises and home PT exercises as able -Cont. with Heat/Ice as warranted -Cont. with supplementation Vit D, Vit C, Ca2+, High protein diet -OK for massage or other alternative treatment modalities as able. If it exacerbates your sx do not continue ACTIVITY -As tolerated -NO LIFTING BENDING TWISTING PUSHING PULLING GREATER THAN -50lbs -Recommend walking up to 30 min 2x daily on a flat easy surface with good support. MEDICATIONS -Cont current regiment -Take as directed -Cont. home medications as directed by your PCP. Check with your PCP for any medication interactions or issues if needed. IMAGING -No new ordered Spine Surgery Clinical and Risk Review Lenka is a 43 yo female presenting for evaluation of low back and leg pain. It was my pleasure to have seen and examined Lenka. In our visit today we have had a chance to go over subjective complaints, physical examination findings and treatments including the natural course history without intervention and various interventional options. The patients imaging demonstrates L4-S1 spondylosis with stenosis, spojndylolisthesis with ddd and height loss causing foraminal and central stenosis. On physical exam, Lenka demonstrates LE weakness, neurogenic claudication, low back pain, continued sx despite exhaustive conservative management. I have explained to the patient that as their condition progresses it will cause further neurological deficits and eventual paralysis. Based on the patients imaging, physical exam, and the rapid progression and disabling nature of their symptoms, at this time I recommend surgery in the form or a: L3-S1 decompression and fusion MIS. I discussed the risk and benefits of this procedure at length with Lenka. The patient agreed to considered pursuing the procedure abovementioned. Prior to surgery, she should follow up with her PCP (Cardio, ID, IM etc) for clearance. Questions were invited and answered, and the patient wishes to proceed as outlined below. Currently, I am recommendin.L3-S1 dcompression and fusion, MIS 2.Pre op labs, MRSA geting today 3.Review of surgical risks and benefits as well as an educational packet on the proposed surgical procedure. Risks: All surgical procedures come with inherent risks, including those related to positioning, anesthesia, intraoperative findings, and postoperative complications. It is important to understand that surgery does not come with any guarantee of a successful outcome as complications and adverse events are always possible. The patient was given a handout in office today discussing the surgical procedure and risks associated with the intervention, both of which were discussed with the patient. These risks include but are not limited to the following: * Experiencing same, different or even worse symptoms in back, neck, arms, or legs compared to before surgery. Requiring further surgery or other forms of treatment presently or at some time in the future at same or other levels of the intended spine surgery. On an extreme but fortunately relatively rare basis severe complication such as blindness, stroke, heart attack, temporary and/or permanent nerve injury, paralysis, coma, or may occur, sometimes without known exp lanation. Surgical complications may include but are not limited to risk of infection, fluid accumulation in the surgical dissection site, including a seroma or hematoma, that requires additional surgery, wound drainage, bleeding, new numbness or weakness, vision changes/loss, spinal fluid leakage, non-healing and/or infected incision, headaches, difficulty or inability to swallow, hoarseness, hemopneumothorax, pneumothorax, impotence, retrograde ejaculation, vaginal dryness; injury to nerves, spinal cord, blood vessels, lymphatics or other vital organs (i.e., bowel injury, injury to the great vessels); heterotopic bone formation; complications related to the hardware such as screws, rods, cages including misplaced hardware, device failure, instrumentation at the wrong spine level, hardware fracture/breakage, or hardware loosening; vertebral failure of the spinal column above or below the newly placed hardware; retained surgical instrumentations or devices and the need for further surgery. * Medical risks of the planned spine surgery include but are not limited to generalized Infections to the whole body or local areas outside of the surgical site (sepsis), heart attack, bleeding, anaphylaxis, meningitis, seizure, epilepsy, hearing loss, burn cates, laceration of the head or other areas of the body, bruising, hypersensitivity of the skin, bladder over distension; allergic reaction; shoulder injury related to positioning; fat, blood and air clots to other areas of the body like heart, lungs, brain; failure of internal organs such as lungs, kidneys, liver and excessive bleeding. If blood transfusions are necessary, note that transfusions may cause intolerance reactions such as anaphylaxis or other complex reactions. Despite best efforts, the results of spine surgery might not heal in terms of bone, soft tissues such as skin, fascia, ligaments, and joints. Additionally, in order to achieve best possible results, spine surgery may be carried out beyond the initially planned levels and involve decompression, fusion including insertion of hardware at levels other than the original intended area of surgical interest change some portions of the procedure in order to ensure the best possible outcomes. With spine surgery and spinal fusion, there are different off label uses of instrumentation (devices, implants and hardware) as well as biological sub stances (bone morphogenic proteins, demineralized bone matrix) as well as using extra bone from allograft sources (i.e. cadaver bone) or autograft (iliac crest bone, ribs, or the spine itself). The patient has been given information about these practices and their inherent risks and benefits. The patient has had a chance to review all the listed information, has been given print outs detailing this information, and has had all his/her questions answered to their satisfaction. It was my pleasure to have seen and examined Lenka. In our visit today we have had a chance to go over my understanding of our patient's current condition, the natural course history without intervention and various interventional options. Questions were invited and answered, and the patient wishes to proceed as outlined above. I have seen and examined the patient for 25 minutes and we have spent more than 50% of the time in repeat and detailed counseling about the patient's condition, its natural course history with out and as much as can be predicted with surgery and re-review of various surgical treatment options. In conclusion, Lenka requested we proceed with the above suggested surgery and are willing to accept risks and limitations of the suggested surgery as nature of the disease process and our best attempts at treatment for the condition. Thank you again for allowing us to be part of your patient's care. Please don't hesitate to contact me if you have any further questions. FOLLOW UP: Post op PLAN AT NEXT VISIT: Recheck PATIENT EDUCATION: Medications Reviewed: YES In our visit today Ms. Huertas and I have had a chance to go over my understanding of the patient's current condition, the natural course history without intervention and various interventional options. Questions were invited and answered, and the patient wishes to proceed as outlined above. I will be sure to keep you updated after Ms. Huertas returns here for further follow-up. Thank you again for your referral. Please do not hesitate to contact me if you have any further questions. Signed and authenticated by: [facility] [address] [facility], [address] [address] . This message is confidential, intended only for the named recipient(s) and may contain information that is privileged or exempt from disclosure under applicable law. If you are not the intended recipient(s), you are notified that the dissemination, distribution or copying of this information is prohibited. If you received this message in error, please notify the sender then delete this message. Past Medical History Past Medical History: Blood Disorder, Hyperlipidemia, Hypertension Additional Past Medical History / Comment(s): BACK PAIN. Iron deficiency anemia. History of Any Multi-Drug Resistant Organisms: None Reported Past Surgical History: Section, Tubal Ligation Additional Past Surgical History / Comment(s): 3-C-SEC-HAD ABD ABSCESS AFTER 2 OF THE [id number] SURGERY, cyst removed off of wrist. RK BILAT EYES Past Anesthesia/Blood Transfusion Reactions: No Reported Reaction Additional Past Anesthesia/Blood Transfusion Reaction / Comment(s): no hx of blood transfusion. Mother is allergic to some anethesia used. Mother had fever after , was isolated, family didn't hear of it being Malignant hyperthermia. Smoking Status: Never smoker - Past Family History Mother Family Medical History: Cancer Additional Family Medical History / Comment(s): Non Hodgkins lymphoma Medications and Allergies Home Medications Medication Instructions Recorded Confirmed Type Acetaminophen [Tylenol] 325 cap PO Q4H PRN 03/04/22 12/16/23 History Ibuprofen [Motrin] 800 mg PO Q6HR PRN #30 tab 03/04/22 12/16/23 Rx methocarbamoL [Methocarbamol] 750 mg PO QID PRN #16 tablet 12/27/22 12/16/23 Rx Pregabalin 300 mg PO TID 04/22/23 12/16/23 History Sertraline [Zoloft] 100 mg PO QAM 04/22/23 12/16/23 History lisinopriL [Zestril] 10 mg PO QAM 04/22/23 12/16/23 History Ondansetron Odt [Zofran Odt] 4 mg PO Q8HR PRN #10 tab 10/01/23 12/16/23 Rx Iron (Unknown Dose) 325 mg PO MOWEFR 12/16/23 12/16/23 History Pravastatin Sodium [Pravachol] 20 mg PO QAM 12/16/23 12/16/23 History Semaglutide [Wegovy] 0.5 mg SQ WEEKLY 12/16/23 12/16/23 History Allergies Allergy/AdvReac Type Severity Reaction Status Date / Time fluconazole [From Diflucan] Allergy Rash/Hives Verified 12/16/23 13:32 Penicillins Allergy Rash/Hives Verified 12/16/23 13:32 Sulfa (Sulfonamide Allergy Rash/Hives Verified 12/16/23 13:32 Antibiotics) sulfamethoxazole Allergy Rash/Hives Verified 12/16/23 13:32 [From Bactrim] trimethoprim [From Bactrim] Allergy Rash/Hives Verified 12/16/23 13:32 Physical Examination Osteopathic Statement: *. No significant issues noted on an osteopathic structural exam other than those noted in the History and Physical/Consult.
[~2023-12-26 05:37] MED LIST: GABAPENTIN 300 MG CAP PO PRN; TRANEXAMIC 1,000 MG/100ML-NACL 1,000 MG in SALINE 1 100ML.BAG IVPB PRN
[2023-12-26] MEDS ORDERED: LIDOCAINE 1% (10MG/ML) FOR IV START INTRADERMA PRN (06:16)
[2023-12-26] MEDS: IV FLUID CONTINUATION 1,000 ML IV ONE ×4 (06:46→07:30)
[2023-12-26] MEDS: LACTATED RINGERS 1,000 ML IV SCH (06:48)
[2023-12-26] MEDS: ONDANSETRON 4 MG/2 ML VIAL IVP PRN (07:04)
[2023-12-26] MEDS: ACETAMINOPHEN TAB 500 MG TAB PO PRN (07:04)
[2023-12-26] MEDS: DEXAMETHASONE SOD PHOSPHATE 4 MG/ML 1 ML VIAL IVP STA (07:06)
[2023-12-26] MEDS ORDERED: SUGAMMADEX SODIUM 200 MG/2 ML SDV IV ONE (07:33)
[2023-12-26] MEDS ORDERED: MIDAZOLAM 2 MG/2 ML VIAL ONE (07:33)
[2023-12-26] MEDS ORDERED: LIDOCAINE 1% INJ 10MG/ML (20 ML MDV) ONE (07:33)
[2023-12-26] MEDS ORDERED: PHENYLEPHRINE 10 MG/ML VIAL ONE (07:33)
[2023-12-26] MEDS ORDERED: PROPOFOL 10 MG/ML 20 ML VIAL IV ONE (07:33)
[2023-12-26] MEDS ORDERED: HYDROmorphone (PF) 1 MG/ML ONE (07:33)
[2023-12-26] MEDS: ceFAZolin 3 GM in SODIUM CHLORIDE 0.9% 100 ML IVPB PRN (07:33)
[2023-12-26] MEDS ORDERED: fentaNYL (PF) 50 MCG/ML 2 ML AMP ONE (07:33)
[2023-12-26] MEDS ORDERED: SUCCINYLCHOLINE CHLORIDE 200 MG/10 ML VIAL IV ONE (07:33)
[2023-12-26] MEDS ORDERED: ROCURONIUM 10 MG/ML (5 ML VIAL) IV ONE (07:33)
[2023-12-26] MEDS ORDERED: TRANEXAMIC 1,000 MG/100ML-NACL PREMIX BAG ONE (07:33)
[2023-12-26] MEDS: LIDOCAINE 2%-EPI 1:100,000 20 ML VIAL SQ ONE (09:01)
[2023-12-26] MEDS: THROMBIN (BOVINE) 5,000 UNIT VIAL TOPICAL ONE (09:01)
[2023-12-26] MEDS: BUPIVACAINE (PF) 0.5% 30 ML VIAL SQ ONE (09:02)
[2023-12-26] MEDS: LACTATED RINGERS 1,000 ML IV ONE ×2 (10:01→12:00)
[2023-12-26] MEDS ORDERED: ONDANSETRON 4 MG/2 ML VIAL IVP PRN (11:14)
[2023-12-26] MEDS ORDERED: HYDROcodone/APAP 5-325MG 1 EACH TAB PO PRN (11:14)
[2023-12-26] MEDS ORDERED: MAGNESIUM HYDROXIDE 2,400 MG/30 ML CUP PO PRN (11:14)
[2023-12-26] MEDS ORDERED: SENNOSIDES-DOCUSATE SODIUM 1 EACH TAB PO PRN (11:14)
--- NOTE | 2023-12-26 11:26 | XR ---
EXAM TYPE: LUMBAR SPINE X RAY SERIES COMPARISON: NONE HISTORY: Lumbar fusion TECHNIQUE: 4 views are submitted. FINDINGS: In resolution intraoperative and postsurgical changes are demonstrated. IMPRESSION: 1. See above. [facility], , 12/26/2023 11:24 AM
--- NOTE | 2023-12-26 11:27 | FL ---
EXAMINATION TYPE: FL guidance operating room DATE OF EXAM: 12/26/2023 HISTORY: Fluoroscopy time Total dose area product (DAP) in uGy*m?, mGy*cm? (or similar): 33.4969 IMPRESSION: 1. Fluoroscopy time. [facility], , 12/26/2023 11:24 AM
[2023-12-26] MEDS: HYDROmorphone 0.5 MG/0.5 ML SYRINGE IVP PRN (11:48)
--- NOTE | 2023-12-26 12:11 | P.OP ---
Date of Procedure: 12/26/23 Preoperative Diagnosis: Current Active Problems Lumbar stenosis (Acute) Lumbosacral spondylosis with radiculopathy (Acute) Other spondylosis with radiculopathy, lumbar region (Acute) Lower extremity weakness (Acute) Radiculopathy with lower extremity symptoms (Acute) Degenerative disc disease (Acute) Low back pain (Acute) Postoperative Diagnosis: Current Active Problems Lumbar stenosis (Acute) Lumbosacral spondylosis with radiculopathy (Acute) Other spondylosis with radiculopathy, lumbar region (Acute) Lower extremity weakness (Acute) Radiculopathy with lower extremity symptoms (Acute) Degenerative disc disease (Acute) Low back pain (Acute) Procedure(s) Performed: L4-5 POSTEROLATERAL AND INTERBODY FUISION L5-S1 POSTEROLATERAL AND INTERBODY FUSION L4-S1 SEGMENTAL INSTRUMENTATION L4-5 AND L5-S1 LAMINECTOMY, FACETECTOMY AND FORAMINOTOMY FOR NEURAL DECOMPRESSION AND CAGE PLACEMENT INSERTION OF BIOMECHANICAL DEVICE L4-5 AND L5-S1 CAGES X2 USE OF BoxC NAVIGATION FOR SCREW PLACEMENT USE OF IONM ALL SCREWS TESTING > 20 mA USE OF IO MICROSCOPE Implants: BRIAN EVEREST RODS AND SCREWS GLOBUS SABLE CAGES X2 9-17 10 MM 8 DEG ARTHROCELL, ALLOCELL AF, MAGNATOS EASY AVERY, AUTOGRAFT Anesthesia: GETA Surgeon: Joseph Zhong Community Outreach Manager #1: Mani Liriano (WAS PRESENT AND ASSISTED WITH ALL ASPECTS OF THE CASE FROM POSITION TO CLOSURE) Estimated Blood Loss (ml): 100 IV fluids (ml): 1,200 Urine output (ml): 350 Pathology: none sent Disposition: PACU Indications for Procedure: Lenka is a 43 yo female presenting for evaluation of low back and leg pain. It was my pleasure to have seen and examined Lenka. In our visit today we have had a chance to go over subjective complaints, physical examination findings and treatments including the natural course history without intervention and various interventional options. The patients imaging demonstrates L4-S1 spondylosis with stenosis, spojndylolisthesis with ddd and height loss causing foraminal and central stenosis. On physical exam, Lenka demonstrates LE weakness, neurogenic claudication, low back pain, continued sx despite exhaustive conservative management. I have explained to the patient that as their condition progresses it will cause further neurological deficits and eventual paralysis. Based on the patients imaging, physical exam, and the rapid progression and disabling nature of their symptoms, at this time I recommend surgery in the form or a: L3-S1 decompression and fusion MIS. I discussed the risk and benefits of this procedure at length with Lenka. The patient agreed to considered pursuing the procedure abovementioned. Prior to surgery, she should follow up with her PCP (Cardio, ID, IM etc) for clearance. Questions were invited and answered, and the patient wishes to proceed as outlined below. Currently, I am recommendin.L3/L4-S1 dcompression and fusion, MIS Description of Procedure: L4-S1 NC POSTEROLATERAL AND INTERBODY FUSION The patient was seen and examined in the preoperative area. All preoperative protocols were followed. Informed consent was obtained, risks and benefits of the procedure were discussed at length. Risks including bleeding infection damage to the surrounding tissue and risk of reoperation were discussed with the patient. Risk of anesthesia up to and including was discussed with the patient. These are outlined in the risk review. They were willing to accept th marlys risks and all the risks of surgery. The patient was given a weight-based dose of antibiotics in the form of 2 g Ancef. The patient was seen and evaluated by the anesthesia team who deemed them fit for surgery. The site was marked, the patient was willing to proceed with the procedure. The patient was transferred to the operative suite by the Department of anesthesia. They were then drifted off to sleep by the department anesthesia and GETA was performed. The patient tolerated this well. Rodas catheter was placed by nursing staff, a-traumatically. Once confirmation of lines and ventil ation the patient was transferred to a prone Rasta table very carefully. All bony prominences including wrists, elbows, axilla, chest, hips, and thighs, and feet were padded very well. Special attention was paid to the genitalia, and these were padded accordingly. SCDs were placed on bilateral lower extremities and were connected. Arms were well padded and placed on arm boards up and out in the 90/90 position. Once in position, again we confirmed good ventilation capabilities and that lines were running appropriately. The patients Lumbar spine was then exposed. 1010s were placed outlining the incision site. Standard alcohol was used to clean the incision site and allowed to dry. C-arm was used to needle localize the pedicles at L4-S1 and bio-eric the patient and confirm level for incision which was marked with a skin marker. Operative briefing was performed with all teams and everyone in agreement to proceed. The patient was then prepped and draped in a normal sterile fashion. Timeout was then performed, and all parties agreed with the procedure to be performed. Skin nicks were then made over the PSIS on the right side and pins placed for the tracker for PASSNFLY Darshan. Tracker was attached and a 3D spin was obtained and registered. Once confirmed to be accurate screws were planned with navigated Jamshidi. Then navigated justin was used to make Superintendent Commissary hole followed by drill, jamshidi and tap over a wire which was then left in place. Wires were then visualized on AP and LAT and confirmed to be in good position. Contralateral screws were then placed using lateral imaging. Screws placed over wires and wire removed once screw was in the body. The screws were confirmed to be in good position on AP and lateral. We then tested screws and they all tested above 20 mA. Attention was then turned to interbody fusion at L5-S1. Tubular retractor system was placed at the interspace of L5-S1 using a biplanar c arm. Once in position and dilated up to 26mm tube it was locked to the bed and confirmed in good position. Microscope was then brought in for visualization. Limited myomectomy was performed and laminectomy, complete facetectomy and foraminotomy performed at L5-S1 using high speed justin and Kerrison rongeur. The ligamentum was removed and the dural sac decompressed. Exiting and traversing roots visualized and decompressed. Neural elements were then protected, and disc space accessed with an osteotome. Sequential shaving then done under lateral imaging and complete discectomy performed using rosemarie, pituitary and curette. Once good bleeding endplates accomplished and good height baptist with trials, a combination of autograft, allograft and synthetic placed anterior in the disc space. The cage was then selected and impacted into place under lateral imaging. The cage was then expanded restoring height, lordosis and alignment. The cage was backfilled with bone graft through a funnel. The cold mill supervisor was removed and the area inspected. Good cage placement, stable cage and no injuries. Area was irrigated copiously, and meticulous hemostasis achieved. The tubular retractor was then removed under direct visualization. Attention was then turned to interbody fusion at L4-5. Tubular retractor system was placed at the interspace of L4-5 using a biplanar c arm. Once in position and dilated up to 26mm tube it was locked to the bed and confirmed in good position. Microscope was then brought in for visualization. Limited myomectomy was performed and laminectomy, complete facetectomy and foraminotomy performed at L4-5 using high speed justin and Kerrison rongeur. The ligamentum was removed and the dural sac decompressed. Exiting and traversing roots visualized and decompressed. Neural elements were then protected, and disc space accessed with an osteotome. Sequential shaving then done under lateral imaging and complete discectomy performed using rosemarie, pituitary and curette. Once good bleeding endplates accomplished and good height baptist with trials, a combination of autograft, allograft and synthetic placed anterior in the disc space. The cage was then selected and impacted into place under lateral imaging. The cage was then expanded restoring height, lordosis and alignment. The cage was backfilled with bone graft through a funnel. The cold mill supervisor was removed and the area inspected. Good cage placement, stable cage and no injuries. Area was irrigated copiously, and meticulous hemostasis achieved. The tubular retractor was then removed under direct visualization. Screws were then selected and placed over the previously placed wires on the ipsillateral side. This was done in the fashion described above. Screws were then tested, and all tested above 20 mA. Aamir length was then measured, and rods selected. They were then placed through the MIS tabs, subfascial. These were then locked into place with set screws and finally tightened. Aamir holders removed and images taken showing good placement of rods, good lordosis and baptist of height. Tabs were broken off. Wounds were then copiously irrigated with NSS. Justin used for TP decortication and mixture of Contour, allograft and autograft packed posterolateral. Fascia was then closed with 0 Vircyl. Deep subq closed with 0 Vicryl. Superficial subq closed with 2-0 Vicryl and skin with kash. Wound edges approximated very well. Wound was then cleaned with alcohol and dried. Wounds dressed with Optifoam dressings. The patient was then transferred off the table back to their hospital bed a- traumatically. They were extubated by the department of anesthesia. They were then transferred to PACU in stable condition having tolerated the procedure with no complications.
[2023-12-26] MEDS: ACETAMINOPHEN TAB 325 MG TAB PO SCH (15:16)
[2023-12-26] MEDS: ceFAZolin 3 GM in SODIUM CHLORIDE 0.9% 100 ML IVPB SCH (17:08)
[2023-12-26] MEDS: HYDROmorphone 1 MG/ML 1 ML SYRINGE IVP PRN (17:15)
[2023-12-26] MEDS: diphenhydrAMINE 25 MG CAP PO PRN (18:05)
--- NOTE | 2023-12-26 18:11 | CT ---
EXAMINATION TYPE: CT lumbar spine wo con DATE OF EXAM: 12/26/2023 5:53 PM COMPARISON: 10/27/2023 HISTORY: post op CT DLP: 1897.6 mGycm Automated exposure control for dose reduction was used. Unenhanced CT of the lumbar spine was performed. Bone and soft tissue window settings are submitted as well as coronal and sagittal reconstructions. Findings: There has been interval laminectomy and posterior metallic and interbody fusion of L4-5 and L5-S1. Th ere is mild spondylosis at the L1-2, L2-3 and L3-4 levels indicating mild degenerative disc disease. There is no malalignment of the lumbar vertebral segments. There are scattered air bubbles in the adjacent soft tissues consistent with recent surgery but there is a suggestion of a 2.4 cm collection of fluid and air adjacent to the pedicle screw at the L4 leve l on the left. It possibly results in compromise of the left L4-5 neural foramina. The exam is limite d due to significant streak artifact from the pedicle screws. There is probable moderate spinal stenosis at the L4-5 level and mild spinal stenosis at the L3-4 lev el. There is eccentric disc bulge at the L2-3 level to the left midline compromising the left lateral recess and resulting in a mild spinal stenosis. IMPRESSION: 1. Questionable fluid collection/abscess adjacent to the left L4 pedicle screw possibly resulting in neural foraminal compromise. Exam is limited by metallic artifact. 2. Multilevel spinal stenosis as described above. [facility], , 12/26/2023 6:08 PM
[2023-12-26] MEDS: GABAPENTIN 300 MG CAP PO SCH (20:27)
[2023-12-26] MEDS ORDERED: PREGABALIN 100 MG CAP PO SCH (21:00)
[2023-12-26] MEDS ORDERED: GABAPENTIN 300 MG CAP PO SCH (22:00)
[2023-12-27] MEDS: HYDROcodone/APAP 10-325MG 1 EACH TAB PO PRN ×2 (01:49→08:33)
--- NOTE | 2023-12-27 08:22 | P.PN ---
Subjective Progress Note Date: 12/27/23 Principal diagnosis: 1. L3-S1 spondylosis with stenosis and radiculopathy 2. Neurogenic claudication 3. Bilateral lower extremity weakness 4. Mechanical low back pain Patient seen and examined this morning. Patient is resting comfortably in bed. She states she has not been up since procedure. Patient states that her pain is managed on current regimen, although she is needing the IV Dilaudid. Medications have been adjusted. Surgical incisions to the paralumbar are clean dry and intact with no shadowing noted on dressings. Informed patient that physical therapy will be in to work with her today. Instructed patient on use of incentive spirometer. Continue to encourage patient to increase her activity and to be up in chair for all meals. Anticipate discharge home tomorrow 12/28/2023, patient states she does have her fathers walker at home. Objective - Vital Signs Vital signs: Vital Signs Temp 99.3 F 12/27/23 07:03 Pulse 101 H 12/27/23 07:03 Resp 17 12/27/23 07:03 BP 113/76 12/27/23 07:03 Pulse Ox 94 L 12/27/23 07:03 FiO2 Intake & Output 12/26/23 12/27/23 12/27/23 18:59 06:59 18:59 Intake Total 2800 Output Total 600 300 Balance 2200 -300 Weight 134.6 kg Intake: IV 2800 Output: Urine 500 300 Estimated Blood Loss 100 Other: Voiding Method Indwelling Catheter - Exam Physical Examination General: The patient is awake and alert, in no acute distress Skin: Skin is warm and dry with no obvious rashes or lesions. Surgical incisions to the paralumbar spine, dressings are clean dry and intact with no shadowing noted. Eye: Pupils are equal, round and reactive to light, extra-ocular movements are intact; there is normal conjunctiva bilaterally. Neck: The neck is supple, there is no tenderness and ROM intact. Cardiovascular: There is a regular rate and rhythm. No murmur, rub or gallop is appreciated. Respiratory: Respirations are non-labored, breath sounds are equal. Gastrointestinal: Soft, non-distended, non-tender abdomen. Back: There is no tenderness to palpation in the midline, paralumbar, parathoracic or buttocks region. There is no obvious deformity . Musculoskeletal: ROM limited secondary to pain and stiffness from surgical procedure. Right: Shoulder abduction 5/5, elbow flexors 5/5, wrist dorsiflexors 5/5. finger abductor 5/5, model making supervisor 5/5, hip flexor 4/5, knee flexor 4/5, ankle dorsiflexor 5/5, ankle plantarflexion 5/5 and extensor hallucis 5/5. Left: Shoulder abduction 5/5, elbow flexors 5/5, wrist dorsiflexors 5/5. finger abductor 5/5, model making supervisor 5/5, hip flexor 4/5, knee flexor 4/5, ankle dorsiflexor 5/5, ankle plantarflexion 5/5 and extensor hallucis 5/5. Neurological: CN 2-12 intact. There are no obvious motor or sensory deficits. Movement and coordination equal and intact. Sensory exam to light touch intact C5-T1 and intact from L2-S1. Reflexes 2/4 in bilateral upper and lower extremities. Negative Hoffmans, babinski, and clonus signs. Psychiatric: Cooperative, appropriate mood & affect, normal judgment. Assessment and Plan Assessment: Postop day 1: L4-S1 minimally invasive TLIF Plan: -Appreciate property consultant and team management. -Activity: Ambulate QID, OOB all meals, up and about, limit lifting bending twisting to less than 5 lbs. Use walker or cane if needed for stability. -Daily PT/OT, increase ambulation strength and balance. -Pain control: Medications adjusted -Meds: reviewed -GI ppx: senna, Miralax -DVT PPX: Heparin -Hygiene: Shower today. Maintain dressing clean and dry. Meticulous cleaning after BMs away from the incision site -Encourage IS 10x/hr -Dispo: Anticipate discharge home tomorrow with homecare *I reviewed and discussed this case with my attending Dr. Zhong, whom has reviewed this chart and films and is in agreement with assessment and plan of care as outlined above. I have personally seen and examined the patient, performed the documentation and the assessment and plan as written. Number of minutes spent on the visit: 20m.
[2023-12-27] MEDS: SENNOSIDES-DOCUSATE SODIUM 1 EACH TAB PO SCH (08:27)
[2023-12-27] MEDS: GABAPENTIN 300 MG CAP PO SCH (08:27)
[2023-12-27 08:48] LABS: Basophils # (A) 0.02 X 10*3/uL (0.00-0.10); Basophils % (A) 0.2 %; Eosinophils # (A) 0.01 X 10*3/uL (0.04-0.35); Eosinophils % (A) 0.1 %; HGB 11.3 g/dL (12.0-15.0); Lymphocytes # (A) 2.71 X 10*3/uL (0.90-5.00); Lymphocytes % (A) 22.5 %; MCHC 32.3 g/dL (32.0-37.0); MCV 86.8 FL (80.0-97.0); Mean Platelet Volume 10.8 FL (9.5-12.2); Monocytes # (A) 1.17 X 10*3/uL (0.20-1.00); Monocytes % (A) 9.7 %; NRBC Per 100 WBC 0 X 10*3/uL (0.00-0.01); Neutrophils # (A) 8.09 X 10*3/uL (1.80-7.70); Neutrophils % (A) 67.1 %; Platelet Count 289 X 10*3/uL (140-440); RBC 4.03 X 10*6/uL (4.10-5.20); RDW 14.4 % (11.5-14.5); WBC 12.05 X 10*3/uL (4.50-10.00)
[2023-12-27 09:06] LABS: BUN/Creat Ratio 14.88 Ratio (12.00-20.00); Blood Urea Nitrogen 11.9 mg/dL (9.0-27.0); Calcium 8.3 mg/dL (8.7-10.3); Carbon Dioxide 25.1 mmol/L (21.6-31.8); Chloride 102 mmol/L (96-109); Glucose 96 mg/dL (70-110); Potassium 3.9 mmol/L (3.5-5.5); Sodium 137 mmol/L (135-145)
[2023-12-27] MEDS: HYDROmorphone 0.5 MG/0.5 ML SYRINGE IVP PRN (10:57)
--- NOTE | 2023-12-27 13:24 | P.CONS ---
History of Present Illness - Reason for Consult Consult date: 12/27/23 Medical management - History of Present Illness History of present illness; patient is a 43-year-old lady with past medical history significant for hypertension, hyperlipidemia who presented to the hospital for elective L3-S1 decompression and fusion. Patient has been following up outpatient with orthopedic spine for her back pain. Patient had been having issues with walking long distances, patient is complaining of pain in her calves. Patient had tried all conservative measures without any relief. Decision was made to proceed with surgery. Postoperatively internal medicine team were consulted for medical management. REVIEW OF SYSTEMS: CONSTITUTIONAL: No fever, no malaise, no fatigue. HEENT: No recent visual problems or hearing problems. Denied any sore throat. CARDIOVASCULAR: No chest pain, orthopnea, PND, no palpitations, no syncope. PULMONARY: No shortness of breath, no cough, no hemoptysis. GASTROINTESTINAL: No diarrhea, no nausea, no vomiting, no abdominal pain. NEUROLOGICAL: No headaches, no weakness, no numbness. HEMATOLOGICAL: Denies any bleeding or petechiae. GENITOURINARY: Denies any burning micturition, frequency, or urgency. MUSCULOSKELETAL/RHEUMATOLOGICAL: Still complaining of back pain ENDOCRINE: Denies any polyuria or polydipsia. The rest of the 14-point review of systems is negative. PHYSICAL EXAMINATION: GENERAL: The patient is alert and oriented x3, not in any acute distress. Well developed, well nourished. HEENT: Pupils are round and equally reacting to light. EOMI. No scleral icterus. No conjunctival pallor. Normocephalic, atraumatic. No pharyngeal erythema. No thyromegaly. CARDIOVASCULAR: S1 and S2 present. No murmurs, rubs, or gallops. PULMONARY: Chest is clear to auscultation, no wheezing or crackles. ABDOMEN: Soft, nontender, nondistended, normoactive bowel sounds. No palpable organomegaly. MUSCULOSKELETAL: No joint swelling or deformity. EXTREMITIES: No cyanosis, clubbing, or pedal edema. NEUROLOGICAL: Gross neurological examination did not reveal any focal deficits. SKIN: Lumbar area surgical incision seen Assessment and plan L3-S1 SPONDYLOSIS WITH STENOSIS AND RADICULOPATHY Status post L3-S1 d ecompression and fusion NEUROGENIC CLAUDICATION LOW BACK PAIN Hypertension hyperlipidemia Status post L3-S1 decompression and fusion Continue pain management per orthopedics Continue DVT prophylaxis per orthopedics Resume home meds PT and OT consulted Labs and medication were reviewed.. Continue same treatment. Continue with symptomatic treatment. Resume home medication. Monitor labs and vitals. DVT and GI prophylaxis. Further recommendations as per clinical course of the patient Dictation was produced using [employer] dictation software. please excuse any grammatical, word or spelling errors. Past Medical History Past Medical History: Blood Disorder, Hyperlipidemia, Hypertension Additional Past Medical History / Comment(s): BACK PAIN. Iron deficiency anemia. History of Any Multi-Drug Resistant Organisms: None Reported Past Surgical History: Back Surgery, Section, Tubal Ligation Additional Past Surgical History / Comment(s): 3-C-SEC-HAD ABD ABSCESS AFTER 2 OF THE O-RNNMYSHY-NKKNAJNIY SURGERY, cyst removed off of wrist. RK BILAT EYES. lumbar fusion Past Anesthesia/Blood Transfusion Reactions: No Reported Reaction Additional Past Anesthesia/Blood Transfusion Reaction / Comm: no hx of blood transfusion. Mother is allergic to some anethesia used. Mother had fever after , was isolated, family didn't hear of it being Malignant hyperthermia. Past Psychological History: Depression Smoking Status: Never smoker Past Alcohol Use History: None Reported Past Drug Use History: Marijuana Additional Drug Use History / Comment(s): USES MARIJUANA DAILY-INSTRUCTED TO REFRAIN FROM USE FOR AT LEAST 24 HOURS PRIOR TO PROCEDURE - Past Family History Mother Family Medical History: Cancer Additional Family Medical History / Comment(s): Non Hodgkins lymphoma Medications and Allergies Home Medications Medication Instructions Recorded Confirmed Type Acetaminophen [Tylenol] 325 cap PO Q4H PRN 03/04/22 12/26/23 History Ibuprofen [Motrin] 800 mg PO Q6HR PRN #30 tab 03/04/22 12/26/23 Rx methocarbamoL [Methocarbamol] 750 mg PO QID PRN #16 tablet 12/27/22 12/26/23 Rx Pregabalin 300 mg PO TID 04/22/23 12/26/23 History Sertraline [Zoloft] 100 mg PO QAM 04/22/23 12/26/23 History lisinopriL [Zestril] 10 mg PO QAM 04/22/23 12/26/23 History Ondansetron Odt [Zofran Odt] 4 mg PO Q8HR PRN #10 tab 10/01/23 12/26/23 Rx Iron (Unknown Dose) 325 mg PO MOWEFR 12/16/23 12/26/23 History Pravastatin Sodium [Pravachol] 20 mg PO QAM 12/16/23 12/26/23 History Semaglutide [Wegovy] 0.5 mg SQ WEEKLY 12/16/23 12/26/23 History Allergies Allergy/AdvReac Type Severity Reaction Status Date / Time fluconazole [From Diflucan] Allergy Rash/Hives Verified 12/26/23 06:28 Penicillins Allergy Rash/Hives Verified 12/26/23 06:28 Sulfa (Sulfonamide Allergy Rash/Hives Verified 12/26/23 06:28 Antibiotics) sulfamethoxazole Allergy Rash/Hives Verified 12/26/23 06:28 [From Bactrim] trimethoprim [From Bactrim] Allergy Rash/Hives Verified 12/26/23 06:28 Physical Exam Vitals: Vital Signs Temp Pulse Resp BP Pulse Ox 12/27/23 12:40 98.5 F 99 17 102/69 93 L 12/27/23 09:04 18 12/27/23 07:03 99.3 F 101 H 17 113/76 94 L 12/27/23 01:47 98.9 F 101 H 19 114/69 95 12/26/23 19:07 98.4 F 100 18 105/57 94 L 12/26/23 15:41 98.8 F 103 H 17 111/76 94 L 12/26/23 15:00 111 H 18 128/63 97 12/26/23 14:30 120 H 16 129/62 95 12/26/23 14:00 109 H 16 112/55 94 L 12/26/23 13:30 105 H 17 117/58 95 Intake and Output 12/26/23 12/27/23 12/27/23 22:59 06:59 14:59 Intake Total 450 Output Total 400 300 900 Balance -400 -300 -450 Intake: Oral 450 Output: Urine 400 300 900 Other: Voiding Method Indwelling Catheter Indwelling Catheter Weight 134.6 kg Results CBC & Chem 7: 12/27/23 04:39 12/27/23 04:39 Labs: Abnormal Lab Results - Last 24 Hours (Table) 12/27/23 12/27/23 Range/Units 04:39 04:39 WBC 12.05 H (4.50-10.00) X 10*3/uL RBC 4.03 L (4.10-5.20) X 10*6/uL Hgb 11.3 L (12.0-15.0) g/dL Hct 35.0 L (37.2-46.3) % Immature Gran # 0.05 H (0.00-0.04) X 10*3/uL Neutrophils # 8.09 H (1.80-7.70) X 10*3/uL Monocytes # 1.17 H (0.20-1.00) X 10*3/uL Eosinophils # 0.01 L (0.04-0.35) X 10*3/uL Calcium 8.3 L (8.7-10.3) mg/dL
[2023-12-27] MEDS: lisinopriL 10 MG TAB PO SCH (13:27)
[2023-12-27] MEDS: SERTRALINE 100 MG TAB PO SCH (13:28)
[2023-12-27] MEDS: PRAVASTATIN SODIUM 20 MG TAB PO SCH (13:28)
[2023-12-27] MEDS: CALCIUM CARBONATE 500 MG CHEWABLE PO PRN (17:18)
--- NOTE | 2023-12-28 08:18 | P.PN ---
Subjective Progress Note Date: 12/28/23 Principal diagnosis: 1. L3-S1 spondylosis with stenosis and radiculopathy 2. Neurogenic claudication 3. Bilateral lower extremity weakness 4. Mechanical low back pain Patient seen and examined this morning. Patient is resting comfortably in bed. Patient states that her pain is not being controlled with [place], medications have been adjusted. Surgical incisions to the paralumbar are clean dry and intact with no shadowing noted on dressings. Continue to encourage patient to increase her activity and to be up in chair for all meals. Anticipate discharge home later today, 12/28/2023, patient states she does have her fathers walker at home. Objective - Vital Signs Vital signs: Vital Signs Temp 99.7 F H 12/28/23 01:30 Pulse 99 12/28/23 01:30 Resp 18 12/28/23 01:30 BP 118/73 12/28/23 01:30 Pulse Ox 92 L 12/28/23 01:30 FiO2 Intake & Output 12/27/23 12/28/23 12/28/23 18:59 06:59 18:59 Intake Total 630 Output Total 1999 Balance -1370 Intake: Oral 630 Output: Urine 1999 Other: Voiding Method Indwelling Catheter Toilet # Voids 2 - Exam Physical Examination General: The patient is awake and alert, in no acute distress Skin: Skin is warm and dry with no obvious rashes or lesions. Surgical incisions to the paralumbar spine, dressings are clean dry and intact with no shadowing noted. Eye: Pupils are equal, round and reactive to light, extra-ocular movements are intact; there is normal conjunctiva bilaterally. Neck: The neck is supple, there is no tenderness and ROM intact. Cardiovascular: There is a regular rate and rhythm. No murmur, rub or gallop is appreciated. Respiratory: Respirations are non-labored, breath sounds are equal. Gastrointestinal: Soft, non-distended, non-tender abdomen. Back: There is no tenderness to palpation in the midline, paralumbar, parathoracic or buttocks region. There is no obvious deformity . Musculoskeletal: ROM limited secondary to pain and stiffness from surgical procedure. Right: Shoulder abduction 5/5, elbow flexors 5/5, wrist dorsiflexors 5/5. finger abductor 5/5, head insulation board saw operator 5/5, hip flexor 4/5, knee flexor 4/5, ankle dorsiflexor 5/5, ankle plantarflexion 5/5 and extensor hallucis 5/5. Left: Shoulder abduction 5/5, elbow flexors 5/5, wrist dorsiflexors 5/5. finger abductor 5/5, head insulation board saw operator 5/5, hip flexor 4/5, knee flexor 4/5, ankle dorsiflexor 5/5, ankle plantarflexion 5/5 and extensor hallucis 5/5. Neurological: CN 2-12 intact. There are no obvious motor or sensory deficits. Movement and coordination equal and intact. Sensory exam to light touch intact C5-T1 and intact from L2-S1. Reflexes 2/4 in bilateral upper and lower e xtremities. Negative Hoffmans, babinski, and clonus signs. Psychiatric: Cooperative, appropriate mood & affect, normal judgment. - Labs CBC & Chem 7: 12/27/23 04:39 12/27/23 04:39 Labs: Abnormal Lab Results - Last 24 Hours (Table) 12/27/23 12/27/23 Range/Units 04:39 04:39 WBC 12.05 H (4.50-10.00) X 10*3/uL RBC 4.03 L (4.10-5.20) X 10*6/uL Hgb 11.3 L (12.0-15.0) g/dL Hct 35.0 L (37.2-46.3) % Immature Gran # 0.05 H (0.00-0.04) X 10*3/uL Neutrophils # 8.09 H (1.80-7.70) X 10*3/uL Monocytes # 1.17 H (0.20-1.00) X 10*3/uL Eosinophils # 0.01 L (0.04-0.35) X 10*3/uL Calcium 8.3 L (8.7-10.3) mg/dL Assessment and Plan Assessment: Postop day 2: L4-S1 minimally invasive TLIF Plan: -Appreciate wedding consultant and team management. -Activity: Ambulate QID, OOB all meals, up and about, limit lifting bending twisting to less than 5 lbs. Use walker or cane if needed for stability. -Daily PT/OT, increase ambulation strength and balance. -Pain control: Medications adjusted -Meds: reviewed -GI ppx: senna, Miralax -DVT PPX: Heparin -Hygiene: Shower today. Maintain dressing clean and dry. Meticulous cleaning after BMs away from the incision site -Encourage IS 10x/hr -Dispo: Anticipate discharge home later today with homecare *I reviewed and discussed this case with my attending Dr. Zhong, whom has reviewed this chart and films and is in agreement with assessment and plan of care as outlined above. I have personally seen and examined the patient, performed the documentation and the assessment and plan as written. Number of minutes spent on the visit: 20m.
[2023-12-28] MEDS: oxyCODONE-APAP 5-325MG 1 EACH TAB PO PRN (08:52)
--- NOTE | 2023-12-28 11:35 | P.PN ---
Subjective History of present illness; patient is a 43-year-old lady with past medical history significant for hypertension, hyperlipidemia who presented to the hospital for elective L3-S1 decompression and fusion. Patient has been following up outpatient with orthopedic spine for her back pain. Patient had been having issues with walking long distances, patient is complaining of pain in her calves. Patient had tried all conservative measures without any relief. Decision was made to proceed with surgery. Postoperatively internal medicine team were consulted for medical management. 12/27 Patient currently doing well States pain is controlled Denies GI/ signs or symptoms no abdominal pain or diarrhea or constipation No other new complaint She thinks she can go home today Patient was instructed to follow-up with PCP Dr. Ba in 1 week and she agrees Objective - Vital Signs Vital signs: Vital Signs Temp 99.2 F 12/28/23 07:52 Pulse 105 H 12/28/23 08:52 Resp 18 12/28/23 08:52 BP 107/72 12/28/23 07:52 Pulse Ox 94 L 12/28/23 07:52 FiO2 Intake & Output 12/27/23 12/28/23 12/28/23 18:59 06:59 18:59 Intake Total 630 Output Total 2000 Balance -1370 Intake: Oral 630 Output: Urine 1999 Other: Voiding Method Indwelling Catheter Toilet Toilet # Voids 2 - Exam GENERAL: The patient is alert and oriented x3, not in any acute distress. Well developed, well nourished. HEENT: Pupils are round and equally reacting to light. EOMI. No scleral icterus. No conjunctival pallor. Normocephalic, atraumatic. No pharyngeal erythema. No thyromegaly. CARDIOVASCULAR: S1 and S2 present. No murmurs, rubs, or gallops. PULMONARY: Chest is clear to auscultation, no wheezing , no crackles. ABDOMEN: Soft, nontender, nondistended, normoactive bowel sounds. No palpable organomegaly. -MUSCULOSKELETAL: No joint swelling or deformity. Surgical wound with dressing in place, rest of exam is deferred to surgery team EXTREMITIES: No cyanosis, clubbing, or pedal edema. NEUROLOGICAL: Gross neurological examination did not reveal any focal deficits. SKIN: No rashes. no petechiae. - Labs CBC & Chem 7: 12/27/23 04:39 12/27/23 04:39 Assessment and Plan Assessment: -L3-S1 SPONDYLOSIS WITH STENOSIS AND RADICULOPATHY Status post L3-S1 decompression and fusion, NEUROGENIC CLAUDICATION, LOW BACK PAIN are improving. Continue with pain management, DVT and GI prophylaxis as per surgery primary team -Mild leukocytosis, most likely reactive. No signs of infection. No fever. No other symptoms of infection. No need for antibiotics for now -Hypertension -hyperlipidemia Patient currently clinically doing well Patient is medically stable Patient was instructed to follow-up with PCP Dr. Ba in 1 week after discharge and she agrees Follow-up with orthopedic team per their recommendation
[2023-12-28] MEDS: oxyCODONE-APAP 10-325MG 1 EACH TAB PO PRN (13:09)
[2023-12-28] MEDS: methocarbamoL 750 MG TAB PO PRN (17:10)
[2023-12-29 02:56] VITALS: RESP 17
--- NOTE | 2023-12-29 08:37 | P.PN ---
Subjective Progress Note Date: 12/29/23 Principal diagnosis: 1. L3-S1 spondylosis with stenosis and radiculopathy 2. Neurogenic claudication 3. Bilateral lower extremity weakness 4. Mechanical low back pain Patient seen and examined this morning. Patient is resting comfortably in bed. Patient states that her pain is being controlled on current regiman. Surgical incisions to the paralumbar are clean dry and intact with no shadowing noted on dressings. Continue to encourage patient to increase her activity and to be up in chair for all meals. Discharge home later today, 12/29/2023, no acute concerns. Objective - Vital Signs Vital signs: Vital Signs Temp 98.8 F 12/29/23 01:48 Pulse 101 H 12/29/23 01:48 Resp 17 12/29/23 01:48 BP 94/57 12/29/23 01:48 Pulse Ox 95 12/29/23 01:48 FiO2 Intake & Output 12/28/23 12/29/23 12/29/23 18:59 06:59 18:59 Other: Voiding Method Toilet # Voids 1 2 - Exam Physical Examination General: The patient is awake and alert, in no acute distress. Skin: Skin is warm and dry with no obvious rashes or lesions. Surgical incisions to the paralumbar spine, dressings are clean dry and intact with no shadowing noted. Eye: Pupils are equal, round and reactive to light, extra-ocular movements are intact; there is normal conjunctiva bilaterally. Neck: The neck is supple, there is no tenderness and ROM intact. Cardiovascular: There is a regular rate and rhythm. No murmur, rub or gallop is appreciated. Respiratory: Respirations are non-labored, breath sounds are equal. Gastrointestinal: Soft, non-distended, non-tender abdomen. Back: There is no tenderness to palpation in the midline, paralumbar, parathoracic or buttocks region. There is no obvious deformity . Musculoskeletal: ROM limited secondary to pain and stiffness from surgical procedure. Right: Shoulder abduction 5/5, elbow flexors 5/5, wrist dorsiflexors 5/5. finger abductor 5/5, component engineer 5/5, hip flexor 4/5, knee flexor 4/5, ankle dorsiflexor 5/5, ankle plantarflexion 5/5 and extensor hallucis 5/5. Left: Shoulder abduction 5/5, elbow flexors 5/5, wrist dorsiflexors 5/5. finger abductor 5/5, component engineer 5/5, hip flexor 4/5, knee flexor 4/5, ankle dorsiflexor 5/5, ankle plantarflexion 5/5 and extensor hallucis 5/5. Neurological: CN 2-12 intact. There are no obvious motor or sensory deficits. Movement and coordination equal and intact. Sensory exam to light touch intact C5-T1 and intact from L2-S1. Reflexes 2/4 in bilateral upper and lower extremities. Negative Hoffmans, babinski, and clonus signs. Psychiatric: Cooperative, appropriate mood & affect, normal judgment. - Labs CBC & Chem 7: 12/27/23 04:39 12/27/23 04:39 Assessment and Plan Assessment: Postop day 3: L4-S1 minimally invasive TLIF Plan: -Appreciate domestic travel consultant and team management. -Activity: Ambulate QID, OOB all meals, up and about, limit lifting bending twisting to less than 5 lbs. Use walker or cane if needed for stability. -Daily PT/OT, increase ambulation strength and balance. -Pain control: Medications adjusted -Meds: reviewed -GI ppx: senna, Miralax -DVT PPX: Heparin -Hygiene: Shower today. Maintain dressing clean and dry. Meticulous cleaning after BMs away from the incision site -Encourage IS 10x/hr -Dispo: Discharge home later today with homecare *I reviewed and discussed this case with my attending Dr. Zhong, whom has reviewed this chart and films and is in agreement with assessment and plan of care as outlined above. I have personally seen and examined the patient, performed the documentation and the assessment and plan as written. Number of minutes spent on the visit: 20m.
--- NOTE | 2023-12-29 08:38 | P.DS ---
Providers Date of admission: 12/27/23 14:09 Expected date of discharge: 12/29/23 Attending physician: Joseph Zhong DO Consults: 12/26/23 11:14 Consult Physician Routine Consulting Provider: Cristopher Segovia Reason/Comments: medical management s/p L4-S1 MIS PLIF Do you want consulting provider notified?: Yes Primary care physician: [facility] Hospital Course: Hospital Course: The patient was evaluated preoperatively and found to have the diagnosis of Lumbar stenosis. They underwent appropriate preoperative care and were willing to undergo the intended procedure. They underwent a successful L4-S1 minimally invasive TLIF, were recovered appropriately and sent to the floor. While on the floor they worked with physical therapy, occupational therapy and nursing to enhance their recovery experience. Their pain was well controlled through their stay and they were started on appropriate medications, DVT ppx modalities, activity and dietary needs. Daily labs were monitored closely, and transfusions were only used when necessary. Medicine as well as other consulting services have made their input and have helped with our team approach and multidisciplinary care. PT milestones have been met and passed and they have made the recommendation of Home for this patient and treating providers agree with this care path. The patient will be discharged home with appropriate medications, instructions and follow-up information and in stable condition. Patient Condition at Discharge: Good Plan - Discharge Summary Discharge Rx Participant: No New Discharge Prescriptions: New Gabapentin 300 mg PO TID #90 cap methocarbamoL [Robaxin-750] 750 mg PO QID PRN #40 tab PRN Reason: Muscle Spasm Sennosides/Docusate Sodium [Senna Plus 8.6-50 mg Tablet] 1 each PO DAILY PRN #20 tab PRN Reason: Constipation metroNIDAZOLE [Flagyl] 500 mg PO BID #10 tab oxyCODONE-APAP 10-325MG [Percocet 10-325 mg] 1 tab PO Q4HR PRN #28 tab PRN Reason: Pain No Action Acetaminophen [Tylenol] 325 cap PO Q4H PRN PRN Reason: Pain Ibuprofen [Motrin] 800 mg PO Q6HR PRN #30 tab PRN Reason: Pain methocarbamoL [Methocarbamol] 750 mg PO QID PRN #16 tablet PRN Reason: Pain Pravastatin Sodium [Pravachol] 20 mg PO QAM Iron (Unknown Dose) 325 mg PO MOWEFR lisinopriL [Zestril] 10 mg PO QAM Sertraline [Zoloft] 100 mg PO QAM Pregabalin 300 mg PO TID Ondansetron Odt [Zofran Odt] 4 mg PO Q8HR PRN #10 tab PRN Reason: Nausea Semaglutide [Wegovy] 0.5 mg SQ WEEKLY Discharge Medication List Acetaminophen [Tylenol] 325 cap PO Q4H PRN 03/04/22 [History] Ibuprofen [Motrin] 800 mg PO Q6HR PRN #30 tab 03/04/22 [Rx] methocarbamoL [Methocarbamol] 750 mg PO QID PRN #16 tablet 12/27/22 [Rx] Pregabalin 300 mg PO TID 04/22/23 [History] Sertraline [Zoloft] 100 mg PO QAM 04/22/23 [History] lisinopriL [Zestril] 10 mg PO QAM 04/22/23 [History] Ondansetron Odt [Zofran Odt] 4 mg PO Q8HR PRN #10 tab 10/01/23 [Rx] Iron (Unknown Dose) 325 mg PO MOWEFR 12/16/23 [History] Pravastatin Sodium [Pravachol] 20 mg PO QAM 12/16/23 [History] Semaglutide [Wegovy] 0.5 mg SQ WEEKLY 12/16/23 [History] Gabapentin 300 mg PO TID #90 cap 12/28/23 [Rx] Sennosides/Docusate Sodium [Senna Plus 8.6-50 mg Tablet] 1 each PO DAILY PRN #20 tab 12/28/23 [Rx] methocarbamoL [Robaxin-750] 750 mg PO QID PRN #40 tab 12/28/23 [Rx] metroNIDAZOLE [Flagyl] 500 mg PO BID #10 tab 12/28/23 [Rx] oxyCODONE-APAP 10-325MG [Percocet 10-325 mg] 1 tab PO Q4HR PRN #28 tab 12/28/23 [Rx] Follow up Appointment(s)/Referral(s): Joseph Zhong DO [Doctor of Osteopathic Medicine] - 01/11/24 10:45 am Activity/Diet/Wound Care/Special Instructions: Spine Discharge and Recovery Instructions Date of Surgery: 12/26/2023 Diagnosis: lumbar stenosis Procedure: L4-S1 minimally invasive TLIF Medications: See medication list All medication refills should be obtained through your primary care doctor or your clinic spine surgeon. Please discuss prescription refills at your follow up appointment. Do not call the hospital for medication refills. Activity: Encourage ambulation with assist of walker, Up and about 6-8x daily PT/OT daily work on balance, strength and mobility Up in chair with all meals Shower daily Brace: Use brace when up and about, do not wear in bed or shower Dressing: Leave your dressing in place for a total of 3 days post operatively. Then you may remove your dressing and leave open to air. Keep the area clean and if not able to keep area clean, then cover with sterile gauze and tape. Showering: You may shower 3 days after your procedure allowing soap and water to run over incision. Do not scrub. Do not soak. Blot dry. Follow up: Please confirm a follow up appointment with your surgeon 2 weeks post operatively. Please make an appointment to follow up with your PCP in 1-2 weeks after surgery for evaluation '3 phase, 3-week plan' POST OP WEEKS 1-3 1. Lifting/carrying/pushing/pulling limited to less than 5 pounds. 2. Do not sit for longer than 15 minutes at one time. Get up and walk around. Prolonged sitting is NOT advised. If you lay down, see if you can tolerate laying down on you front (belly side) 3. Walk for periods of 15 minutes = 1 mile but no longer; do it multiple times times each day. 4. Ice your low back after activity. POST OP WEEKS 3-6 1. Lifting limited to less than 20 pounds. 2. Do not sit for longer than 30 minutes at a time. Frequently change positions. Use a sit-to stand workstation or take frequent breaks from sitting if you have returned to work. 3. Walk for 30 minutes each day. If possible, do these three or more times a day POST OP WEEKS 6+ At your 6-week appointment we will give you a physical therapy referral to focus on a core stabilization and strengthening program. You should also work on leg & buttock strengthening, hamstring & quadriceps stretching, and continue a low impact aerobic activity program such as swimming, walking, or riding a stationary bicycle. During the initial 6 weeks after your surgery, you are at the highest risk of re-injuring your spine. You should generally avoid BLT's (bending, lifting and twisting combination motions) and follow the above guidelines to reduce the chance of reinjury. You can anticipate post op appointments in our office at approximately 3 weeks and 6 weeks after your surgery. INCISION CARE: If your incision is not draining you do NOT need to cover it with a dressing. Keep your incision clean, dry and intact. In most cases, we apply skin glue, kash or sutures to the incision at the time of surgery. This will be like a crust or have the appearance of a scab and will fall off in time on its own. The stitches or kash need to be removed at 3 weeks post op appointment. You may begin to shower 3 days after surgery (this allows the glue to little well). However, please avoid scrubbing the incision site or peeling off any of the skin glue. This will ensure optimal healing of your incision. Also, during this time avoid soaking the incision area in water - this includes swimming pools, hot tubs or baths. No ointments, lotions or oils on the incision until your surgeon allows. Leave kash, sutures or glue in place. Neurological dysfunction that comes on suddenly can also be a sign of a stroke. Below some common symptoms of a stroke are listed: B - balance difficulty such as sudden onset walking or leaning to one side - NEW E - eye problem such as sudden double vision or trouble seeing on one side - NEW F - Facial weakness or numbness on one side - NEW A - Arm or leg weakness or numbness on one side - NEW S - Slurred speech or difficulty with word finding - NEW T - Time is BRAIN! Call 911 as soon as you recognize these symptoms Diet: Consume a regular diet rich in vegetables and lean protein such as chicken or fish. You should consume in a ratio of approximately 20% fats|40% carbohydrates|40%protein. Vegetables, sweet potatoes, brown rice or quinoa are examples of good carbohydrates. Chips, white bread, cookies and sweets/sugar are examples of bad carbohydrates. Limit your bad carbs, go wild with good carbs. "Life's Simple 7" Guidelines as per [place] [employer] These will help you reclaim your life after surgery and pipe coverer helper in your recovery, keeping in mind your restrictions. (1) Get Active. Physical activity can help people lose weight, control high blood pressure and cholesterol, feel emotionally better, and sleep better. (2) Control Cholesterol. Avoid a diet high in saturated fat, trans fat, & cholesterol. Limit whole milk & cream, ice cream, butter, egg yolks, processed meats (like sausage and hot dogs), and fatty meats. Choose healthy foods that are low in saturated fat, trans fat and cholesterol which include: Fruits and vegetables, fiber rich grain products (like whole grain pasta and brown rice), lean meat such as chicken, fish, nuts, seeds, and legumes. (3) Eat Better. Eat small portions. Shop at the grocery with a list and do not stray from it. Tips for a healthy diet include: Limit sodium intake to less than 1500mg daily, avoid prepackaged, processed, and fast foods, choose a diet rich in fruits, vegetables, and whole grain, high fiber foods, and limit saturated & cholesterol in your diet. (4) Manage Blood Pressure. If you have high blood pressure, you should have a cuff at home so that you can check your blood pressure regularly. Be sure you have a good cuff. An arm one is generally better than a wrist one. Bring the cuff to a doctor's appointment to validate that the measurements that your cuff are taking are accurate. Take your blood pressure twice daily when you are sitting down and relaxing. Record the numbers in a log and bring this log with you to your doctors' appointments. (5) Lose Weight if your BMI is above 25. A healthy BMI is between 19-25. To calculate Your BMI, you may use a Standard BMI Calculator on the NIH BMI website: <www.nhlbi.nih.gov/guidelines/obesity/BMI/bmicalc.htm>. Weigh oneself daily. If you are overweight, set a goal to lose weight. A pound a week loss if needed is a good target. (6) Reduce Blood Sugar. Limit foods and liquids with "added sugars." (Added sugars include sucrose, fructose, glucose, maltose, dextrose, high fructose corn syrup, corn syrup, concentrated fruit juice and honey). (7) Stop Smoking. If you smoke, quitting smoking is one of the best things that you can do for your health. Smoking increases your risk of heart attack, stroke, and peripheral vascular disease, which is a build-up of plaque in your arteries. Please discard all the cigarettes and lighters in your house. Have a plan for what you will do when you have the urge to smoke. Direct and second- hand smoke shortens your life as well as the lives of your family, friends and others around you. For your health and the health of those around you, please consider quitting! Proper Bending Body Mechanics: Maintain a wide stance with one foot slightly in front of the other. Keep your back straight. Bend utilizing the strength in your hips and knees. Do not bend at the waist. Maintain the lifted object at your waist-level close to your body. Avoid lifting weight that causes immediately pain or pain anywhere in the body afterwards. Smoking/Nicotine If there was ever one thing that you could do to increase your overall health, decrease your risk of cardiovascular problems by about 39% the second you make the choice, it is to STOP SMOKING. Your body's most instant gratification is the second you stop smoking. We have all heard the studies, read the articles but it is true, smoking is extremely bad for your overall health, and moreover it is detrimental to your bone health. Nicotine, IN ANY FORM, kills bone cells, prevents your body from healing fractures, and significantly prolongs healing after surgery. In spine surgery specifically, it increases your risk of not healing your bones to create a fusion and increases your risk of having a revision surgery due to this up to 60%. I know it is hard. I know it feels impossible. But there are ways. Take control of your life. We are here to help you through it. And when you are ready, ask us and we can direct you to help if you desire. Use the START Plan to Quit Smoking (please visit the Helpguide.org website listed below for more information): S = Set a quit date. Choose a date within the next 2 weeks, so you have enough time to prepare without losing your motivation to quit. If you mainly smoke at work, quit on the weekend, so you have a few days to adjust to the change. T = Tell family, friends, and co-workers that you plan to quit. Let your friends and family in on your plan to quit smoking and tell them you need their support and encouragement to stop. Look for a quit cristela who wants to stop smoking as well. You can help each other get through the rough times. A = Anticipate and plan for the challenges you'll face while quitting. Most people who begin smoking again do so within the first 3 months. You can help yourself make it through by preparing ahead for common challenges, such as nicotine withdrawal and cigarette cravings. R = Remove cigarettes and other tobacco products from your home, car, and work. Throw away all your cigarettes (no emergency pack!), lighters, ashtrays, and matches. Wash your clothes and freshen up anything that smells like smoke. Shampoo your car, clean your drapes and carpet, and steam your furniture. T = Talk to your doctor about getting help to quit. Your doctor can prescribe medication to help with withdrawal and suggest other alternatives. If you can't see a doctor, you can get many products over the coun ter at your local pharmacy or grocery store, including the nicotine patch, nicotine lozenges, and nicotine gum. Resources for Quitting Smoking: <https://www.[place].gov/documents/mdc/Quit_Tob acco_Resources_for_patients_313480_7.pdf> Supplementation: Take recommended dosages of Vitamin D and Calcium to help fortify your bones and help them to heal. See your health maintenance packet for dosages and recommended levels. DVT/VTE prophylaxis: You will be given compression stockings from the hospital. Wear these daily for the first two weeks after surgery. You may take them off at night. You may be prescribed a medication to help thin your blood. Take this as directed. If you are not prescribed this medication, early and frequent ambulation has been shown to be the best prophylaxis to deep vein thrombosis and sequelae related to this event. Discharge Disposition: HOME SELF-CARE
[2023-12-29 08:42] VITALS: BP 103/72; PULSE 92; TEMP 98.5
--- NOTE | 2023-12-29 09:23 | P.PN ---
Subjective History of present illness; patient is a 43-year-old lady with past medical history significant for hypertension, hyperlipidemia who presented to the hospital for elective L3-S1 decompression and fusion. Patient has been following up outpatient with orthopedic spine for her back pain. Patient had been having issues with walking long distances, patient is complaining of pain in her calves. Patient had tried all conservative measures without any relief. Decision was made to proceed with surgery. Postoperatively internal medicine team were consulted for medical management. 12/27 Patient currently doing well States pain is controlled Denies GI/ signs or symptoms no abdominal pain or diarrhea or constipation No other new complaint She thinks she can go home today Patient was instructed to follow-up with PCP Dr. Ba in 1 week and she agrees 12/28 Pain controlled. Patient awake alert looks comfortable She denies any other complaint. Patient states she is ready to go home today. She complains from constipation. She is on narcotics and instruction is provided for her about medication and management and she verbalized understanding and acceptance Give one-time dose of MiraLAX today. Objective - Vital Signs Vital signs: Vital Signs Temp 98.5 F 12/29/23 07:03 Pulse 92 12/29/23 07:03 Resp 17 12/29/23 07:03 BP 103/72 12/29/23 07:03 Pulse Ox 94 L 12/29/23 07:03 FiO2 Intake & Output 12/28/23 12/29/23 12/29/23 18:59 06:59 18:59 Other: Voiding Method Toilet # Voids 1 2 - Exam GENERAL: The patient is alert and oriented x3, not in any acute distress. Well developed, well nourished. HEENT: Pupils are round and equally reacting to light. EOMI. No scleral icterus. No conjunctival pallor. Normocephalic, atraumatic. No pharyngeal erythema. No thyromegaly. CARDIOVASCULAR: S1 and S2 present. No murmurs, rubs, or gallops. PULMONARY: Chest is clear to auscultation, no wheezing , no crackles. ABDOMEN: Soft, nontender, nondistended, normoactive bowel sounds. No palpable organomegaly. -MUSCULOSKELETAL: No joint swelling or deformity. Surgical wound with dressing in place, rest of exam is deferred to surgery team EXTREMITIES: No cyanosis, clubbing, or pedal edema. NEUROLOGICAL: Gross neurological examination did not reveal any focal deficits. SKIN: No rashes. no petechiae. - Labs CBC & Chem 7: 12/27/23 04:39 12/27/23 04:39 Assessment and Plan Assessment: -L3-S1 SPONDYLOSIS WITH STENOSIS AND RADICULOPATHY Status post L3-S1 decompression and fusion, NEUROGENIC CLAUDICATION, LOW BACK PAIN are improving. Continue with pain management, DVT and GI prophylaxis as per surgery primary team -Mild leukocytosis, most likely reactive. No signs of infection. No fever. No other symptoms of infection. No need for antibiotics for now -Hypertension -hyperlipidemia -Constipation, iatrogenic Plan: MiraLAX time 1. Continue with laxative. Pain management as per surgery team Patient currently clinically doing well Patient is medically stable Patient was instructed to follow-up with PCP Dr. Ba in 1 week after discharge and she agrees Follow-up with orthopedic team per their recommendation
[2023-12-29] MEDS: polyethylene glycoL 3350 17 GM POWD.PACK PO STA (14:16)
== END 2023-12-29 15:22 | disposition home or self-care (01) ==
LOC: OR 05:37 → 4SSUR 10:59 → OR 12-27 14:09 → 4SSUR 12-27 14:09
PROVIDERS: ADMIT Orthopaedic Surgery; ATTEND Orthopaedic Surgery
DX: M51.16 Intervertebral disc disorders with radiculopathy, lumbar region (principal); M51.17 Intervertebral disc disorders with radiculopathy, lumbosacral region; M48.061 Spinal stenosis, lumbar region without neurogenic claudication; D72.829 Elevated white blood cell count, unspecified; K59.09 Other constipation; I10 Essential (primary) hypertension; E78.5 Hyperlipidemia, unspecified; F32.A Depression, unspecified; Z68.42 Body mass index [BMI] 45.0-49.9, adult; Z56.0 Unemployment, unspecified; Z79.899 Other long term (current) drug therapy; Z88.0 Allergy status to penicillin; Z88.2 Allergy status to sulfonamides
CPT/HCPCS: 72100; 72131; 80048; 81025; 85025; 96365; 96366; 96375; 96376

== ENCOUNTER → 2024-06-13 | Outpatient (CLI) | payer OTHER ==
[2024-06-13 15:17] VITALS: BP 140/89; PULSE 128; RESP 16; TEMP 98.8; BMI 50.5
--- NOTE | 2024-06-13 15:40 | P.HPBAR ---
Bariatric H&P - History & Physicial H&P Date: 06/13/24 History & Physicial: Visit/CC: new Patient initial contact: Initial weight: Initial weight in pounds: Height: 5 ft 6 in Initial BMI: Last weight: Current weight: 141.974 kg Current weight in pounds: 313.00 Current BMI: 50.5 [place] body weight (based on NIH guidelines): 59.09 kg Excess body weight loss: The patient is a 43 year-old F who presents for Bariatric Assessment. She is on Wegovy. Has Díaz. Has migrianes with medication. HR 130s. Highest weight 320 pounds. Had lumbar fusion. Dad, sister and all family. Dad is a lye boiler. No weight loss. No heartburn. Hips no problem. Knee drainage and OA. No ankle . No feet problems. No stomach, esophageal. No crohns. NO colitis. Dad had IBS. She has gallbladder. No bowel issues. No abdominal pain. Colon test done this year. She is looking into the sleeve. Dont heal very well. Cant walk much. NO food journal. Not much water. Drinks mountain dew. 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 Still has gallbladder. Past Medical History Past Medical History: Hypertension Additional Past Medical History / Comment(s): BACK PAIN History of Any Multi-Drug Resistant Organisms: None Reported Past Surgical History: Back Surgery, Section, Tubal Ligation Additional Past Surgical History / Comment(s): 3-C-SEC-HAD ABD ABSCESS AFTER 2 OF THE G-CTWEIJXR-ZPSQBHBYY SURGERY, cyst removed off of wrist. Radial Keratotomy BILAT EYE, 12-23-23 Lumbar Fusion L4-5, L5-S1, pain management injections Past Anesthesia/Blood Transfusion Reactions: No Reported Reaction Additional Past Anesthesia/Blood Transfusion Reaction / Comm: no hx of blood transfusion. Mother is allergic to some anethesia used. Mother had fever after , was isolated, family didn't hear of it being Malignant hyperthermia. Past Psychological History: Depression Smoking Status: Never smoker Past Alcohol Use History: None Reported Past Drug Use History: None Reported - Past Family History Mother Family Medical History: Cancer Additional Family Medical History / Comment(s): Non Hodgkins lymphoma Surgical - Exam Vital Signs Temp Pulse Resp BP 98.8 F 128 H 16 140/89 06/13/24 15:08 06/13/24 15:08 06/13/24 15:08 06/13/24 15:08 Bariatric Checklist Checklist: Plan: Checklist: EGD: 1. Hiatal hernia: 2. H. Pylori: HgbA1c: Vitamin D: Smoking: Never smoker Primary care physician referral: [facility] Psychiatry clearance: Cardiology clearance: Sleep study: Diet journal: VTE risk score: VTE risk level: Rehab needs at discharge:
== END ==
LOC: BARWHC3 14:52
PROVIDERS: ATTEND Surgery Plastic and Reconstructive Surgery
DX: E66.01 Morbid (severe) obesity due to excess calories (principal); Z68.43 Body mass index [BMI] 50.0-59.9, adult; F12.90 Cannabis use, unspecified, uncomplicated; Z88.0 Allergy status to penicillin; Z88.2 Allergy status to sulfonamides; Z88.8 Allergy status to other drugs, medicaments and biological substances
CPT/HCPCS: 99211

== ENCOUNTER → 2024-06-26 | Outpatient (CLI) | payer OTHER ==
--- NOTE | 2024-06-26 20:17 | MR ---
INDICATION: Patient age:Female; 43 years old; Reason for study: M47.22, M54.2; [facility]. COMPARISON: Cervical spine radiograph 04/20/2024. TECHNIQUE: Multi planar, multi sequence imaging was performed of the cervical spine. No Gadolinium wa s given. FINDINGS: Alignment: The cervical vertebral bodies have preserved heights. Alignment is within normal limits [facility] patient positioning. Bones: Bone signal is within normal limits. Multilevel anterior osteophytosis. No abnormal STIR sign al. Cord: The spinal cord is unremarkable with regards to their signal intensity and morphology. Discs: Multilevel disc desiccation is present. C2-C3: No significant disc pathology. The spinal canal is patent. No neural foraminal stenosis. C3-C4: Broad-based disc bulge with mild effacement of the anterior thecal sac with abutment of the an terior aspect of the spinal cord without significant mass effect. Mild central canal stenosis. No si gnificant neural foraminal stenosis. C4-C5: Small central disc protrusion superimposed upon a broad-based disc bulge. There is mild efface ment of the anterior thecal sac with abutment of the anterior spinal cord. No significant mass effect . Mild central canal stenosis. Uncovertebral joint hypertrophy resulting in mild bilateral neural for aminal stenosis. C5-C6: Broad-based disc bulge with uncovertebral joint hypertrophy. Mild effacement of the anterior s ac with abutment of the anterior spinal cord. Mild to moderate central canal stenosis. Moderate to s evere right neural foraminal stenosis. The left neural foramen is patent. C6-C7: Broad-based disc bulge without significant effacement of the anterior thecal sac. No significa nt central canal stenosis. The neural foramina are patent bilaterally. C7-T1: Posterior disc osteophyte complex with minimal effacement of the anterior thecal sac. No signi ficant central canal stenosis. No neural foraminal stenosis. Other: None. 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 [facility], , 06/26/2024 8:15 PM
== END | disposition home or self-care (01) ==
LOC: RADMRIMAIN 18:49
PROVIDERS: ATTEND Orthopaedic Surgery
DX: M50.123 Cervical disc disorder at C6-C7 level with radiculopathy (principal); M47.22 Other spondylosis with radiculopathy, cervical region
CPT/HCPCS: 72141

== ENCOUNTER 2024-07-16 07:52 | Day surgery (SDC) | payer OTHER ==
[~2024-07-16 07:52] MED LIST changes: -GABAPENTIN 300 MG CAP PO PRN; +LIDOCAINE 1% (10MG/ML) FOR IV START INTRADERMA PRN; -TRANEXAMIC 1,000 MG/100ML-NACL 1,000 MG in SALINE 1 100ML.BAG IVPB PRN
[2024-07-16] MEDS: LACTATED RINGERS 1,000 ML IV ONE (08:13)
[2024-07-16 08:16] VITALS: TEMP 97
--- NOTE | 2024-07-16 08:17 | P.GSHP ---
History of Present Illness H&P Date: 07/16/24 CHIEF COMPLAINT: GERD HISTORY OF PRESENT ILLNESS: The patient is a 44-year-old female who presents reports gastroesophageal reflux disease. Upper endoscopy was offered for further evaluation and management. PAST MEDICAL HISTORY: Please see list. PAST SURGICAL HISTORY: Please see list. MEDICATIONS: Please see list. ALLERGIES: Please see list. SOCIAL HISTORY: No illicit drug use FAMILY HISTORY: No reports of Crohn disease or ulcerative colitis. REVIEW OF ORGAN SYSTEMS: CONSTITUTIONAL: No reports of fevers or chills. GI: Denies any blood in stools or constipation. PHYSICAL EXAM: VITAL SIGNS: Stable GENERAL: Well-developed and pleasant in no acute distress. HEENT: No scleral icterus. Extraocular movements grossly intact. Moist buccal mucosa. NECK: Supple without lymphadenopathy. CHEST: Unlabored respirations. Equal bilateral excursions. CARDIOVASCULAR: Regular rate and rhythm. Distal 2+ pulses. ABDOMEN: Soft, nondistended. MUSCULOSKELETAL: No clubbing, cyanosis, or edema. ASSESSMENT: 1. Gastroesophageal reflux disease PLAN: 1. Recommend proceeding with an upper endoscopy Past Medical History Past Medical History: Hyperlipidemia, Hypertension, Osteoarthritis (OA) Additional Past Medical History / Comment(s): BACK PAIN, Pre bariatric workup History of Any Multi-Drug Resistant Organisms: None Reported Past Surgical History: Back Surgery, Section, Tubal Ligation Additional Past Surgical History / Comment(s): 3-C-SEC-HAD ABD ABSCESS AFTER 2 OF THE [id number] SURGERY, cyst removed off of rt wrist. Radial Keratotomy BILAT EYE, 12-23-23 Lumbar Fusion L4-5, L5-S1, pain management injections Past Anesthesia/Blood Transfusion Reactions: No Reported Reaction Additional Past Anesthesia/Blood Transfusion Reaction / Comment(s): no hx of blood transfusion. Mother is allergic to some anethesia used. Mother had fever after , was isolated, family didn't hear of it being Malignant hyperthermia. Smoking Status: Never smoker - Past Family History Mother Family Medical History: Cancer, Deep Vein Thrombosis (DVT) Additional Family Medical History / Comment(s): Non Hodgkins lymphoma Medications and Allergies Home Medications Medication Instructions Recorded Confirmed Type Acetaminophen [Tylenol] 325 cap PO Q4H PRN 03/04/22 07/12/24 History Sertraline [Zoloft] 50 mg PO QAM 04/22/23 07/12/24 History lisinopriL [Zestril] 10 mg PO QAM 04/22/23 07/12/24 History Ondansetron Odt [Zofran Odt] 4 mg PO Q8HR PRN #10 tab 10/01/23 07/12/24 Rx Pravastatin Sodium [Pravachol] 20 mg PO QAM 12/16/23 07/12/24 History Celecoxib [CeleBREX] 200 mg PO BID 06/13/24 07/12/24 History Cyclobenzaprine [Flexeril] 10 mg PO TID PRN 06/13/24 07/12/24 History Gabapentin 600 mg PO TID 06/13/24 07/12/24 History amLODIPine [Norvasc] 1 tab PO DAILY 06/13/24 07/12/24 History Allergies Allergy/AdvReac Type Severity Reaction Status Date / Time fluconazole [From Diflucan] Allergy Rash/Hives Verified 07/12/24 15:13 Penicillins Allergy Rash/Hives Verified 07/12/24 15:13 Sulfa (Sulfonamide Allergy Rash/Hives Verified 07/12/24 15:13 Antibiotics) sulfamethoxazole Allergy Rash/Hives Verified 07/12/24 15:13 [From Bactrim] trimethoprim [From Bactrim] Allergy Rash/Hives Verified 07/12/24 15:13 Surgical - Exam Vital Signs Temp Pulse Resp BP Pulse Ox 97 F L 99 18 156/97 98 07/16/24 08:13 07/16/24 08:13 07/16/24 08:13 07/16/24 08:13 07/16/24 08:13
[2024-07-16] MEDS: LACTATED RINGERS 1,000 ML IV SCH (08:18)
[2024-07-16] MEDS ORDERED: LIDOCAINE 1% INJ 10MG/ML (20 ML MDV) ONE (08:31)
[2024-07-16] MEDS ORDERED: PROPOFOL 10 MG/ML 20 ML VIAL IV ONE (08:31)
--- NOTE | 2024-07-16 09:04 | P.PCN ---
Date of Procedure: 07/16/24 Description of Procedure: PREOPERATIVE DIAGNOSIS: Dysphagia Gastroesophageal reflux disease. Morbid obesity. POSTOPERATIVE DIAGNOSIS: Gastroesophageal reflux disease with erosive esophagitis Morbid obesity. Gastritis with bleeding Obstructive sleep apnea OPERATION: Esophagogastroduodenoscopy with cold forceps biopsies along esophagus, antrum and duodenum SURGEON: Melody Alvarez MD ANESTHESIA: MAC. INDICATIONS: The patient is a 44-year-old female who presents with reflux disease. Benefits and risks of the procedure were described. Informed consent was obtained. DESCRIPTION: The patient was brought into the endoscopy suite and laid in the left lateral decubitus position. An Olympus gastroscope was passed along the posterior oropharynx down to the distal esophagus where the squamocolumnar junction was encountered at 37 cm from the incisors. The stomach was entered and no bile reflux was found. Additional findings are listed below. Biopsies with cold forceps were obtained of the antrum. The first through third portion of the duodenum was examined. Retroflexion of the scope confirmed Hill grade 2 lower esophageal valve. The squamocolumnar junction demonstrated LA grade B erosive esophagitis. The stomach was desufflated. The patient tolerated the procedure well. FINDINGS: Squamocolumnar junction 37 cm from the incisors. Diaphragmatic hiatus at 37 cm. Hill grade 2 lower esophageal valve. LA grade C erosive esophagitis. Biopsies obtained Biopsies obtained of the duodenum. Acute gastritis with bleeding with biopsies obtained. Obstructive sleep apnea RECOMMENDATIONS: Smoking cessation advised Treatment for obstructive sleep apnea advised Omeprazole 40 mg daily for 2 weeks Discontinue NSAIDs Plan - Discharge Summary Discharge Rx Participant: No New Discharge Prescriptions: New Omeprazole [PriLOSEC] 40 mg PO DAILY #14 cap Continue Acetaminophen [Tylenol] 325 cap PO Q4H PRN PRN Reason: Pain Pravastatin Sodium [Pravachol] 20 mg PO QAM Gabapentin 600 mg PO TID lisinopriL [Zestril] 10 mg PO QAM Sertraline [Zoloft] 50 mg PO QAM Ondansetron Odt [Zofran ODT] 4 mg PO Q8HR PRN #10 tab PRN Reason: Nausea Cyclobenzaprine [Flexeril] 10 mg PO TID PRN PRN Reason: muscle spasms amLODIPine [Norvasc] 1 tab PO DAILY Discontinued Celecoxib [CeleBREX] 200 mg PO BID Discharge Medication List Acetaminophen [Tylenol] 325 cap PO Q4H PRN 03/04/22 [History] Sertraline [Zoloft] 50 mg PO QAM 04/22/23 [History] lisinopriL [Zestril] 10 mg PO QAM 04/22/23 [History] Ondansetron Odt [Zofran ODT] 4 mg PO Q8HR PRN #10 tab 10/01/23 [Rx] Pravastatin Sodium [Pravachol] 20 mg PO QAM 12/16/23 [History] Cyclobenzaprine [Flexeril] 10 mg PO TID PRN 06/13/24 [History] Gabapentin 600 mg PO TID 06/13/24 [History] amLODIPine [Norvasc] 1 tab PO DAILY 06/13/24 [History] Omeprazole [PriLOSEC] 40 mg PO DAILY #14 cap 07/16/24 [Rx] Follow up [facility]ment(s[facility]Ref[facility] [place] [facility] 08[facility]01/24 3:00 pm Patient Instructions/Handouts: Gastritis (DC), How to Stop Smoking (DC) Discharge Disposition: HOME SELF-CARE
--- NOTE | 2024-07-16 09:05 | P.PN ---
Progress Note - Text Progress Note Date: 07/16/24 Recommend EKG for obstructive sleep apnea including atypical chest pain.
[2024-07-16 09:11] VITALS: BP 125/86; PULSE 91; RESP 18
== END 2024-07-16 10:06 | disposition home or self-care (01) ==
LOC: ORWHC2ENDO 07:52
PROVIDERS: ATTEND Surgery Plastic and Reconstructive Surgery
DX: K29.50 Unspecified chronic gastritis without bleeding (principal); K21.00 Gastro-esophageal reflux disease with esophagitis, without bleeding; B96.81 Helicobacter pylori [H. pylori] as the cause of diseases classified elsewhere; E66.01 Morbid (severe) obesity due to excess calories; G47.33 Obstructive sleep apnea (adult) (pediatric); K44.9 Diaphragmatic hernia without obstruction or gangrene; E78.5 Hyperlipidemia, unspecified; I10 Essential (primary) hypertension; Z88.1 Allergy status to other antibiotic agents; Z88.2 Allergy status to sulfonamides; Z88.3 Allergy status to other anti-infective agents; Z88.0 Allergy status to penicillin
CPT/HCPCS: 81025; 43239; J2003; J2704; 88305; 88342

== ENCOUNTER → 2024-07-16 | Outpatient (CLI) | payer OTHER ==
[2024-07-16 11:30] LABS: INR 0.9 (<1.2); Partial Thromboplastin Time 22.3 sec (22.0-30.0); Prothrombin Time 10.1 sec (10.0-12.5)
[2024-07-16 15:35] LABS: HCT 43.1 % (37.2-46.3); HGB 13.5 g/dL (12.0-15.0); MCHC 31.3 g/dL (32.0-37.0); MCV 86.2 FL (80.0-97.0); Mean Platelet Volume 10.3 FL (9.5-12.2); NRBC Per 100 WBC 0 X 10*3/uL (0.00-0.01); Platelet Count 373 X 10*3/uL (140-440); RDW 14.3 % (11.5-14.5); WBC 11.82 X 10*3/uL (4.50-10.00)
[2024-07-16 16:03] LABS: % Iron Saturation 13.45 (12.00-45.00); ALT 29 U/L (8-44); AST 42 U/L (13-35); Albumin 4.2 g/dL (3.8-4.9); Albumin/Globulin Ratio 1.31 Ratio (1.60-3.17); Alkaline Phosphatase 80 U/L (41-126); BUN/Creat Ratio 14.86 Ratio (12.00-20.00); Blood Urea Nitrogen 10.4 mg/dL (9.0-27.0); Calcium 9.2 mg/dL (8.7-10.3); Carbon Dioxide 21.8 mmol/L (21.6-31.8); Chloride 102 mmol/L (96-109); Chol/HDL Ratio 5.48 Ratio; Ferritin 39.6 ng/mL (10.0-291.0); Globulin 3.2 g/dL (1.6-3.3); Glucose 85 mg/dL (70-110); Iron 55 UG/DL (50-170); LDL Cholesterol,Calculated 195.6 mg/dL (0.0-131.0); Phosphorus 3.2 mg/dL (2.4-5.1); Potassium 4.3 mmol/L (3.5-5.5); Sodium 139 mmol/L (135-145); Total Bilirubin 0.2 mg/dL (0.3-1.2); Total Iron Binding Capacity 409 UG/DL (228-460); Total Protein 7.4 g/dL (6.2-8.2)
[2024-07-16 17:59] LABS: Prealbumin 22.5 mg/dL (18.0-42.0)
[2024-07-17 13:39] LABS: Zinc, Serum 79 ug/dL (60-130)
[2024-07-18 06:43] LABS: Vitamin A 50 ug/dL (38-106)
== END | disposition home or self-care (01) ==
LOC: LABWHC1 10:17
PROVIDERS: ATTEND Surgery Plastic and Reconstructive Surgery
DX: E55.9 Vitamin D deficiency, unspecified (principal); E66.01 Morbid (severe) obesity due to excess calories; E89.1 Postprocedural hypoinsulinemia; E44.1 Mild protein-calorie malnutrition; D50.9 Iron deficiency anemia, unspecified; K74.1 Hepatic sclerosis; N19 Unspecified kidney failure; K50.90 Crohn's disease, unspecified, without complications
CPT/HCPCS: 36415; 80053; 80061; 80307; 82306; 82525; 82607; 82728; 82746; 83036; 83540; 83550; 83735; 83970; 84100; 84134; 84255; 84425; 84443; 84590; 84630; 85027; 85610; 85730

== ENCOUNTER → 2024-08-13 | Outpatient (CLI) | payer OTHER ==
[2024-08-13 14:55] VITALS: BMI 52.4
== END ==
LOC: BARWHC3 13:13
PROVIDERS: ATTEND Surgery Plastic and Reconstructive Surgery
DX: E66.01 Morbid (severe) obesity due to excess calories (principal); Z68.43 Body mass index [BMI] 50.0-59.9, adult; F12.90 Cannabis use, unspecified, uncomplicated; Z71.3 Dietary counseling and surveillance; Z88.3 Allergy status to other anti-infective agents; Z88.2 Allergy status to sulfonamides
CPT/HCPCS: 97804

== ENCOUNTER → 2024-09-12 | Outpatient (CLI) | payer OTHER ==
[2024-09-12 11:39] VITALS: BP 144/83; PULSE 94; TEMP 98.2; BMI 53.4
--- NOTE | 2024-09-12 17:43 | P.PN ---
Progress Note - Text Progress Note Date: 09/12/24 Nurse visit only
== END ==
LOC: BARWHC3 10:04
PROVIDERS: ATTEND Surgery Plastic and Reconstructive Surgery
DX: E66.01 Morbid (severe) obesity due to excess calories (principal); B96.1 Klebsiella pneumoniae [K. pneumoniae] as the cause of diseases classified elsewhere; F12.90 Cannabis use, unspecified, uncomplicated; Z88.8 Allergy status to other drugs, medicaments and biological substances; Z88.1 Allergy status to other antibiotic agents; Z88.2 Allergy status to sulfonamides; Z68.43 Body mass index [BMI] 50.0-59.9, adult
CPT/HCPCS: 83013; G0463; 99211

== ENCOUNTER → 2024-10-11 | Outpatient (CLI) | payer OTHER | END | disposition home or self-care (01) | LOC: LABPAT 12:02 | PROVIDERS: ATTEND Orthopaedic Surgery | DX: Z01.812 Encounter for preprocedural laboratory examination (principal); M48.061 Spinal stenosis, lumbar region without neurogenic claudication; M47.26 Other spondylosis with radiculopathy, lumbar region; Z22.322 Carrier or suspected carrier of Methicillin resistant Staphylococcus aureus | CPT/HCPCS: 86850; 86900; 86901; 87070 ==

== ENCOUNTER 2024-10-18 05:37 | Day surgery (SDC) | payer OTHER ==
[~2024-10-18 05:37] MED LIST changes: +GABAPENTIN 300 MG CAP PO PRN; -LIDOCAINE 1% (10MG/ML) FOR IV START INTRADERMA PRN; +ONDANSETRON 4 MG/2 ML VIAL IVP PRN; +TRANEXAMIC 1,000 MG/100ML-NACL 1,000 MG in SALINE 1 100ML.BAG IVPB PRN
[2024-10-18] MEDS: IV FLUID CONTINUATION 1,000 ML IV ONE ×4 (06:12→14:03)
[2024-10-18] MEDS: ACETAMINOPHEN TAB 500 MG TAB PO PRN (06:59)
[2024-10-18] MEDS: DEXAMETHASONE SOD PHOSPHATE 4 MG/ML 1 ML VIAL IV ONE (07:00)
[2024-10-18] MEDS: ONDANSETRON 4 MG/2 ML VIAL IVP ONE (07:00)
--- NOTE | 2024-10-18 07:02 | P.HPOR ---
History of Present Illness H&P Date: 10/11/24 .D:Date: 10/11/24 : 11:15am .T:Title: PRE OP H&P WITH RISK ASSESSMENT Clinical Summary Lenka Huertas presented for a pre-operative consultation for C3 to C6 anterior cervical discectomy and fusion scheduled for 10/18/24. The surgical approach and post-operative expectations were thoroughly discussed, including the natural corridor approach to the cervical spine, expected temporary symptoms of pain, difficulty swallowing, and hoarse voice post-operatively. Post-operative care plan includes: - One night hospitalization - Possible drain placement for one day - Cervical collar for 2-4 weeks transitioning from hard to soft collar - Dietary modifications starting with soft foods progressing as tolerated The surgical technique will involve placement of spacers at each level with screws and possibly plate fixation depending on anatomical fit. Lenka Huertas is awaiting PCP clearance with recent laboratory work completion and has obtained the prescribed cryo therapy device. Lenka expressed some anxiety regarding the cervical procedure but demonstrated understanding of the surgical plan and post-operative course. Chief Complaint Cervical spine pathology requiring C3 to C6 anterior cervical discectomy and fusion. SPINE SURGERY CLINICAL AND RISK REVIEW Lenka Huertas is presenting for evaluation of cervical spine pathology requiring surgical intervention. It was my pleasure to have seen and examined Nivia Huertas. In our visit today, we have had a chance to go over subjective complaints, physical examination findings, and treatments including the natural course history without intervention and various interventional options. The patient's imaging demonstrates the following findings: - Cervical spine pathology from C3 to C6 requiring surgical intervention On a physical exam, Lenka Huertas demonstrates the following findings: - Findings consistent with cervical spine pathology requiring surgical intervention I have explained to Lenka that as their condition progresses, it will cause fu rther neurological deficits and eventual paralysis. Based on the patient's imaging, physical exam, and the rapid progression and disabling nature of their symptoms, at this time I recommend surgery in the form of a: C3 to C6 anterior cervical discectomy and fusion. I discussed the risk and benefits of this procedure at length with Lenka Huertas. Lenka has agreed to consider pursuing the procedure above mentioned. Prior to surgery, they should follow up with her PCP for clearance. Questions were invited and answered, and Lenka wishes to proceed as outlined below. Recommendations 1. Proceed with C3 to C6 anterior cervical discectomy and fusion scheduled for 10/18/24 2. Obtain PCP clearance prior to surgery 3. Complete laboratory work as required for surgical clearance 4. Continue current pain management with Fentanyl as prescribed 5. Utilize cryo therapy device as obtained for post-operative pain management 6. Post-operative hospitalization for one night with possible drain placement 7. Post-operative cervical collar wear for 2-4 weeks, transitioning from hard to soft collar 8. Dietary modifications post-operatively starting with soft foods and advancing as tolerated 9. Follow-up as scheduled for post-operative care and collar removal Risks All surgical procedures come with inherent risks, including those related to positioning, anesthesia, intraoperative findings, and postoperative complications. It is important to understand that surgery does not come with any guarantee of a successful outcome as complications and adverse events are always possible. Lenka was given a handout in the office today discussing the surgical procedure and risks associated with the intervention, both of which were discussed with Lenka. These risks include but are not limited to the following: - Experiencing same, different or even worse symptoms in back, neck, arms, or legs compared to before surgery. - Requiring further surgery or other forms of treatment presently or at some time in the future at same or other levels of the intended spine surgery. - On an extreme but fortunately relatively rare basis severe complications such as blindness, stroke, heart attack, temporary and/or permanent nerve injury, paralysis, coma, or may occur, sometimes without known explanation. - Surgical complications may include but are not limited to risk of infection, fluid accumulation in the surgical dissection site, including a seroma or hematoma, that requires additional surgery, wound drainage, bleeding, new numbness or weakness, vision changes/loss, spinal fluid leakage, non-healing and/or infected incision, headaches, difficulty or inability to swallow, hoarseness, hemopneumothorax, pneumothorax, impotence, retrograde ejaculation, vaginal dryness; injury to nerves, spinal cord, blood vessels, lymphatics or other vital organs (i.e., bowel injury, injury to the great vessels); heterotopic bone formation; complications related to the hardware such as screws, rods, cages including misplaced hardware, device failure, instrumentation at the wrong spine level, hardware fracture/breakage, or hardware loosening; vertebral failure of the spinal column above or below the newly placed hardware; retained surgical instrumentations or devices and the need for further surgery. - Medical risks of the planned spine surgery include but are not limited to generalized infections to the whole body or local areas outside of the surgical site (sepsis), heart attack, bleeding, anaphylaxis, meningitis, seizure, epilepsy, hearing loss, burn cates, laceration of the head or other areas of the body, bruising, hypersensitivity of the skin, bladder over distension; allergic reaction; shoulder injury related to positioning; fat, blood and air clots to other areas of the body like heart, lungs, brain; failure of internal organs such as lungs, kidneys, liver and excessive bleeding. If blood transfusions are necessary, note that transfusions may cause intolerance reactions such as anaphy laxis or other complex reactions. - Despite best efforts, the results of spine surgery might not heal in terms of bone, soft tissues such as skin, fascia, ligaments, and joints. Additionally, in order to achieve best possible results, spine surgery may be carried out beyond the initially planned levels and involve decompression, fusion including insertion of hardware at levels other than the original intended area of surgical interest change some portions of the procedure in order to ensure the best possible outcomes. - With spine surgery and spinal fusion, there are different off-label uses of instrumentation (devices, implants and hardware) as well as biological substances (bone morphogenic proteins, demineralized bone matrix) as well as using extra bone from allograft sources (i.e., cadaver bone) or autograft (iliac crest bone, ribs, or the spine itself). Lenka has been given information about these practices and their inherent risks and benefits. Lenka has had a chance to review all the listed information, has been given print outs detailing this information, and has had all questions answered to their satisfaction. It was my pleasure to have seen and examined Lenka Huertas. In our visit today we have had a chance to go over my understanding of Eddies current condition, the natural course history without intervention and various interventional options. Questions were invited and answered, and Lenka wishes to proceed as outlined above. I have seen and examined Lenka for 25 minutes and we have spent more than 50% of the time in repeat and detailed counseling about Lenka's condition, its natural course history without and as much as can be predicted with surgery and re-review of various surgical treatment options. In conclusion, Lenka Huertas and their family requested we proceed with the above suggested surgery and are willing to accept risks and limitations of the suggested surgery as the nature of the disease process and our best attempts at treatment for the condition. Attestation In our visit today, Lenka and I have had a chance to go over my understanding of their current condition, the natural course history without intervention and various interventional options. Questions were invited and answered, and Lenka wishes to proceed as outlined above. I will be sure to keep you updated after Lenka returns here for further follow- up. Thank you again for your referral. Please do not hesitate to contact me if you have any further questions. Signed and authenticated by: DO James Strickland [facility] [address] [facility], [address] [address] This document is confidential, intended only for the named recipient(s) and may contain information that is privileged or exempt from disclosure under applicable law. If you are not the intended recipient(s), you are notified that the dissemination, distribution or copying of this information is strictly prohibited. If you received this message in error, please notify the sender then delete this message. # SIGNED BY Joseph Zhong (GOO)10/11/2024 11:51AM Past Medical History Past Medical History: GERD/Reflux, Hyperlipidemia, Hypertension, Osteoarthritis (OA) Additional Past Medical History / Comment(s): BACK PAIN- neck pain History of Any Multi-Drug Resistant Organisms: None Reported Past Surgical History: Back Surgery, Section, Tubal Ligation Additional Past Surgical History / Comment(s): 3-C-SEC-HAD ABD ABSCESS AFTER 2 OF THE [id number] SURGERY, cyst removed off of wrist. Radial Keratotomy BILAT EYE, 12-23-23 Lumbar Fusion L4-5, L5-S1, pain management injections Past Anesthesia/Blood Transfusion Reactions: No Reported Reaction Additional Past Anesthesia/Blood Transfusion Reaction / Comment(s): no hx of blood transfusion. Mother is allergic to some anethesia used. Mother had fever after , was isolated, family didn't hear of it being Malignant hyperthermia. Smoking Status: Never smoker - Past Family History Mother Family Medical History: Cancer, Deep Vein Thrombosis (DVT) Additional Family Medical History / Comment(s): Non Hodgkins lymphoma Father Family Medical History: Hypertension Medications and Allergies Home Medications Medication Instructions Recorded Confirmed Type Acetaminophen [Tylenol] 325 cap PO Q4H PRN 03/04/22 10/18/24 History Sertraline [Zoloft] 100 mg PO QAM 04/22/23 10/18/24 History lisinopriL [Zestril] 10 mg PO QAM 04/22/23 10/18/24 History Ondansetron Odt [Zofran ODT] 4 mg PO Q8HR PRN #10 tab 10/01/23 10/18/24 Rx Pravastatin Sodium [Pravachol] 20 mg PO HS 12/16/23 10/18/24 History Cyclobenzaprine [Flexeril] 10 mg PO TID PRN 06/13/24 10/18/24 History Gabapentin 600 mg PO TID 06/13/24 10/18/24 History amLODIPine [Norvasc] 10 mg PO HS 06/13/24 10/18/24 History Omeprazole [PriLOSEC] 40 mg PO DAILY #90 cap 08/01/24 10/18/24 Rx Loratadine 10 mg PO DAILY PRN 10/12/24 10/18/24 History Allergies Allergy/AdvReac Type Severity Reaction Status Date / Time fluconazole [From Diflucan] Allergy Rash/Hives Verified 10/18/24 06:31 Sulfa (Sulfonamide Allergy Rash/Hives Verified 10/18/24 06:31 Antibiotics) sulfamethoxazole Allergy Rash/Hives Verified 10/18/24 06:31 [From Bactrim] trimethoprim [From Bactrim] Allergy Rash/Hives Verified 10/18/24 06:31 Physical Examination Osteopathic Statement: *. No significant issues noted on an osteopathic structural exam other than those noted in the History and Physical/Consult.
[2024-10-18] MEDS: LACTATED RINGERS 1,000 ML IV SCH (07:03)
[2024-10-18] MEDS ORDERED: PHENYLEPHRINE-0.9% NACL SYG 1,000 MCG/10 ML SYRINGE ONE (07:25)
[2024-10-18] MEDS ORDERED: NEOSTIGMINE 1 MG/ML 10 ML VIAL ONE (07:25)
[2024-10-18] MEDS ORDERED: LIDOCAINE 1% INJ 10MG/ML (20 ML MDV) ONE (07:25)
[2024-10-18] MEDS ORDERED: ROCURONIUM 10 MG/ML (5 ML VIAL) IV ONE (07:25)
[2024-10-18] MEDS ORDERED: SUCCINYLCHOLINE CHLORIDE 200 MG/10 ML VIAL IV ONE (07:25)
[2024-10-18] MEDS ORDERED: PROPOFOL 10 MG/ML 20 ML VIAL IV ONE (07:25)
[2024-10-18] MEDS ORDERED: KETAMINE HCL IN 0.9 % NACL 50 MG/5 ML SYRINGE ONE (07:25)
[2024-10-18] MEDS ORDERED: HYDROmorphone (PF) 1 MG/ML ONE (07:25)
[2024-10-18] MEDS ORDERED: MIDAZOLAM 2 MG/2 ML VIAL ONE (07:25)
[2024-10-18] MEDS ORDERED: GLYCOPYRROLATE 0.2 MG/ML 2 ML VIAL ONE (07:25)
[2024-10-18] MEDS ORDERED: fentaNYL (PF) 50 MCG/ML 2 ML AMP ONE (07:25)
[2024-10-18] MEDS ORDERED: VASOPRESSIN 20 UNIT/ML 1 ML VIAL ONE (07:25)
[2024-10-18] MEDS ORDERED: TRANEXAMIC 1,000 MG/100ML-NACL PREMIX BAG ONE (07:25)
[2024-10-18] MEDS: THROMBIN (BOVINE) 5,000 UNIT VIAL TOPICAL ONE (08:17)
[2024-10-18] MEDS: LACTATED RINGERS 1,000 ML IV ONE (09:57)
--- NOTE | 2024-10-18 10:05 | P.OP ---
Date of Procedure: 10/18/24 Preoperative Diagnosis: 1. 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 CERVICAL STENOSIS WITH MYELOPATHY 3. CERVICAL DISC DISORDER 4. NECK PAIN 5. BUE WEAKNESS Postoperative Diagnosis: 1. 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 CERVICAL STENOSIS WITH MYELOPATHY 3. CERVICAL DISC DISORDER 4. NECK PAIN 5. BUE WEAKNESS Procedure(s) Performed: 1. C3-4 ANTERIOR CERVICAL INTERBODY ARTHRODESIS 2. C4-5 ANTERIOR CERVICAL INTERBODY ARTHRODESIS 3. C5-6 ANTERIOR CERVICAL INTERBODY ARTHRODESIS 4. ANTERIOR CERVICAL INSTRUMENTATION C3-6 5. INSERTION OF BIOMECHANICAL DEVICES C3-4, C4-5, C5-6, CAGES x3 USE OF IONM USE OF IO MICROSCOPE Implants: -BRIAN CASCADIA PLATE/SCREWS -BRIAN OZARK PLATE/SCREW -MAGNATOS, AUTOGRAFT Anesthesia: GETA Surgeon: Joseph Zhong Licensed Embalmer #1: Mani Liriano (was present and assisted with all asepcts of the case from position to dressing placement) Estimated Blood Loss (ml): 25 IV fluids (ml): 1,200 Urine output (ml): 0 Pathology: none sent Condition: stable Disposition: PACU Indications for Procedure: Patient Lenka Huertas is a 44-year-old female with a history of degenerative disc disease presenting with cervical radiculopathy and myelopathy. MRI demonstrated significant disc herniations at C3-C6 with cord compression. The patient has failed conservative management including physical therapy, medica tion management, and interventional pain procedures. She continues to experience persistent neck pain with bilateral upper extremity radicular symptoms including numbness, tingling, and weakness that has progressively worsened over the past several months, significantly impacting her activities of daily living and quality of life. After thorough discussion of risks, benefits, and alternatives, the patient has elected to proceed with C3 to C6 anterior cervical discectomy and fusion to decompress the neural elements and stabilize the cervical spine. Description of Procedure: C3-6 ACDF The patient was seen and examined in the preoperative area. All preoperative protocols were followed. Informed consent was obtained, risks and benefits of the procedure were discussed at length. Risks including bleeding infection damage to the surrounding tissue and risk of reoperation were discussed with the patient. Risk of anesthesia up to and including was discussed with the patient. These are outlined in the risk review. They were willing to accept these risks and all the risks of surgery. The patient was given a weight-based dose of antibiotics in the form of 2 g Ancef. The patient was seen and evaluated by the anesthesia team who deemed them fit for surgery. The site was marked, the patient was willing to proceed with the procedure. The patient was transferred to the operative suite by the Department of anesthesia. They were then drifted off to sleep by the department anesthesia and GETA was performed. The patient tolerated this well. Rodas catheter was placed by nursing staff, a-traumatically. Once confirmation of lines and ventilation the patient was transferred to a Supine Rasta table very carefully. All bony prominences including wrists, elbows, axilla, chest, hips, and thighs, and feet were padded very well. Special attention was paid to the genitalia, and these were padded accordingly. SCDs were placed on bilateral lower extremities and were connected. Arms were well padded and placed at their side thumbs up. Once in position, again we confirmed good ventilation capabilities and that lines were running appropriately. The patients Cervical spine was then exposed. 1010s were placed outlining the incision site. Standard alcohol was used to clean the incision site and allowed to dry. C-arm was used to bio-eric the patient and confirm level for incision which was marked with a skin marker. Operative briefing was performed with all teams and everyone in agreement to proceed. The patient was then prepped and draped in a normal sterile fashion. Timeout was then performed, and all parties agreed with the procedure to be performed. Transverse skin incision was then made on the right side of the patient's neck 3 cm and dissection taken down to the platysma which was split transversely. Sub platysma flap was made, and interval identified between SCM and medial structures. Omohyoid was visualized and protected. Blunt dissection taken down to the anterior cervical fascia which was identified. Blunt prob was then placed and lateral image taken which confirmed levels for operation. These levels were then marked with a bovi. Subperiosteal dissection of the longissimus muscles were then done over these levels identifying uncovertebral joints bilaterally. Retractor was then placed deep to these muscles and held in place with a bed arm. [place] pins were placed into C3 and C4 and gentle distraction taken out over the levels. Niesha rongeur used to remove disc material. Operating microscope rom srivastavat in for visualization. Complete discectomy performed at this level with curette, rongure and pituitary. High speed justin used to remove osteophytes anteriorly and posteriorly until PLL was identified. 6-0 up curette then used to identify the canal and ressect the PLL. 2-0 and 3-0 Kerrison used then to remove PLL and disc herniation and performed b/l foraminotomies. Once good decompression was accomplished, meticulous hemostasis was performed. Sizers were then placed under lateral fluoroscopy until the desired height and lordosis. Cage was then selected, packed with autograft and allograft and placed under lateral imaging. Once in good position it was tested and stable. Motors run before and after cage placement were stable. The wound was irrigated, and autograft placed lateral to the cage anteriorly for fusion. [place] pin was then removed from C3 and placed into C5 and bone wax placed in their void. Gentle distraction taken out over C4-5 now. Complete discectomy done at C4-5 as described including decompression, b/l foraminotomies and PLL resection. Burring of endplates was minimal, osteophytes removed as described. Spacers were then sized and placed under lateral imaging. Cage selected, packed with graft and placed under lateral images. Once in position, meticulous hemostasis performed, and motors remained stable before and after cage placement. AP image confirmed good placement of cages. Wound was irrigated. At C5-6, [place] pins were placed into C5 and C6 and gentle distraction taken out over the levels. Niesha rongeur used to remove disc material. Operating microscope brought in for visualization. Complete discectomy performed at this level with curette, rongure and pituitary. High speed justin used to remove osteophytes anteriorly and posteriorly until PLL was identified. 6-0 up curette then used to identify the canal and ressect the PLL. 2-0 and 3-0 Kerrison used then to remove PLL and disc herniation and performed b/l foraminotomies. Once good decompression was accomplished, meticulous hemostasis was performed. Sizers were then placed under lateral fluoroscopy until the desired height and lordosis. Cage was then selected, packed with autograft and allograft and placed under lateral imaging. Once in good position it was tested and stable. Motors run before and after cage placement were stable. The wound was irrigated , and autograft placed lateral to the cage anteriorly for fusion. A separate, non-integrated plate was then selected and sized under lateral image. The plate was then placed with screws. Fixed screws drilled into C6 b/l and screws placed. Then into C5 C4 and C3 bilaterally. All locking mechanisms were set, and all screws had good purchase. Final AP and lateral images taken confirmed good placement of hardware and good reduction and congregation of height. The wound was then irrigated copiously with NSS. Surgicel placed deep in the wound. No deep drain placed. Layered closure then performed with 3-0 Vicryl in the platysma and sub-Q tissue. 2-0 Nylon placed in the skin The wound was then cleaned, dried and skin glue placed. Once glue dried telfa, 4x4, and tegaderms were placed for dressing. The patient was then transferred back to their hospital bed a-traumatically. They were placed in a soft collar. They were then awakened by the department of anesthesia having tolerated the procedure well without complications.
--- NOTE | 2024-10-18 10:12 | FL ---
EXAMINATION TYPE: FL guidance operating room, XR cervical spine limited DATE OF EXAM: 10/18/2024 10:07 AM COMPARISON: Pre Operative Images if available both CT/MRI or plain film CLINICAL INDICATION: Female, 44 years old with history of C3-C6 Fusion; TECHNIQUE: FL guidance operating room, XR cervical spine limited, multiple fluoroscopic images provid ed for procedure. DAP: 0.9358 mGym2 Gycm2 uGym2 cGycm2 or equivalent. FINDINGS: Fluoroscopic images during internal fixation/arthroplasty demonstrate hardware in appropriate positio n. Hardware appears intact. No immediate complication identified. IMPRESSION: 1. No evidence for intraoperative complication. 2. Please see the operative/procedural note for further details. [facility], , 10/18/2024 10:10 AM
[2024-10-18] MEDS ORDERED: HYDROcodone/APAP 5-325MG 1 EACH TAB PO PRN ×2 (10:32→11:29)
[2024-10-18] MEDS ORDERED: SENNOSIDES-DOCUSATE SODIUM 1 EACH TAB PO PRN (10:32)
[2024-10-18] MEDS ORDERED: ONDANSETRON 4 MG/2 ML VIAL IVP PRN (10:32)
[2024-10-18] MEDS ORDERED: MAGNESIUM HYDROXIDE 2,400 MG/30 ML CUP PO PRN (10:32)
[2024-10-18] MEDS ORDERED: HYDROcodone/APAP 10-325MG 1 EACH TAB PO PRN (10:32)
[2024-10-18] MEDS: HYDROmorphone 0.5 MG/0.5 ML SYRINGE IVP PRN ×2 (11:07→12:14)
[2024-10-18] MEDS: KETOROLAC 15 MG/ML 1 ML VIAL IVP SCH (12:00)
[2024-10-18] MEDS: SCOPOLAMINE 1 MG/72 HR PATCH TRANSDERM ONE (14:16)
[2024-10-18] MEDS: ACETAMINOPHEN TAB 325 MG TAB PO SCH (14:17)
[2024-10-18] MEDS: DEXMEDETOMIDINE/0.9% NACL(PMX) 400 MCG in EMPTY BAG 1 BAG IV SCH (14:17)
[2024-10-18] MEDS ORDERED: LORATADINE 10 MG TAB PO PRN (15:33)
--- NOTE | 2024-10-18 16:31 | CT ---
CT cervical spine without contrast HISTORY: Cervical fusion. COMPARISON: None. TECHNIQUE: Multiple axial images are obtained from skull base to the upper thoracic spine without con trast FINDINGS: There is been anterior metallic and interbody fusion of C3-C6. There is subcutaneous emphysema in the vertebral soft tissues indicating recent surgery. The craniove rtebral junction relationship is normal. The cervical vertebral segments are normal in alignment. There is mild disc space narrowing and spondylosis at the C6-7 level. There is mild disc space narrow ing at the C2-3 level. There is no bony encroachment of the spinal canal. There is mild bony neural foraminal encroachment a t C5-6 on the right. IMPRESSION: Satisfactory appearance of anterior cervical fusion from C3 through C6 as described above. The cervic al vertebral segments are normal in alignment. [facility], Workstation: [id number] 10/18/2024 4:29 PM
[2024-10-18] MEDS: GABAPENTIN 300 MG CAP PO SCH (16:37)
[2024-10-18] MEDS: PRAVASTATIN SODIUM 20 MG TAB PO SCH (20:35)
[2024-10-18] MEDS: CYCLOBENZAPRINE 10 MG TAB PO PRN (20:35)
--- NOTE | 2024-10-18 22:02 | P.PN ---
Progress Note - Text Progress Note Date: 10/18/[address] reviewed. Hardware in good position. Reduction and alignment are near anatomic. No evidence of complicating process.
[2024-10-19] MEDS: HYDROmorphone 1 MG/ML 1 ML SYRINGE IVP PRN (00:49)
[2024-10-19 07:56] LABS: Basophils # (A) 0.03 X 10*3/uL (0.00-0.10); Basophils % (A) 0.2 %; Eosinophils # (A) 0.02 X 10*3/uL (0.04-0.35); Eosinophils % (A) 0.2 %; HCT 40.9 % (37.2-46.3); HGB 12.3 g/dL (12.0-15.0); Immature Grans, Automated 0.30 %; Lymphocytes # (A) 1.96 X 10*3/uL (0.90-5.00); Lymphocytes % (A) 15.5 %; MCH 24.9 pg (27.0-32.0); MCHC 30.1 g/dL (32.0-37.0); MCV 82.8 FL (80.0-97.0); Monocytes # (A) 0.88 X 10*3/uL (0.20-1.00); Monocytes % (A) 7.0 %; NRBC Per 100 WBC 0 X 10*3/uL (0.00-0.01); Neutrophils # (A) 9.68 X 10*3/uL (1.80-7.70); Neutrophils % (A) 76.8 %; Platelet Count 375 X 10*3/uL (140-440); RBC 4.94 X 10*6/uL (4.10-5.20); RDW 14.3 % (11.5-14.5); WBC 12.61 X 10*3/uL (4.50-10.00)
[2024-10-19] MEDS: PANTOPRAZOLE 40 MG TABLET PO SCH (08:09)
[2024-10-19] MEDS: SERTRALINE 50 MG TAB PO SCH (08:09)
[2024-10-19] MEDS: SENNOSIDES-DOCUSATE SODIUM 1 EACH TAB PO SCH (08:09)
[2024-10-19 08:10] LABS: Anion Gap 13.60 mmol/L (4.00-12.00); BUN/Creat Ratio 8.38 Ratio (12.00-20.00); Blood Urea Nitrogen 6.7 mg/dL (9.0-27.0); Calcium 9.1 mg/dL (8.7-10.3); Carbon Dioxide 25.4 mmol/L (21.6-31.8); Chloride 101 mmol/L (96-109); Glucose 100 mg/dL (70-110); Potassium 4.2 mmol/L (3.5-5.5); Sodium 140 mmol/L (135-145)
--- NOTE | 2024-10-19 10:09 | P.PN ---
Subjective Progress Note Date: 10/19/24 Principal diagnosis: 1. 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 CERVICAL STENOSIS WITH MYELOPATHY 3. CERVICAL DISC DISORDER 4. NECK PAIN 5. BUE WEAKNESS Patient was seen at bedside this morning lying somewhere composition with Rodas catheter in place and soft c-collar in place and dressing present over anterior cervical spine. Patient states she has not yet worked with physical therapy but is looking forward to later this morning. She says the numbness and tingling she had in her hand has improved since surgery. Patient denies any other issues at this time. Objective - Vital Signs Vital signs: Vital Signs Temp 98.1 F 10/19/24 07:28 Pulse 103 H 10/19/24 07:28 Resp 16 10/19/24 07:28 BP 129/66 10/19/24 07:28 Pulse Ox 92 L 10/19/24 07:28 FiO2 Intake & Output 10/18/24 10/19/24 10/19/24 18:59 06:59 18:59 Intake Total 2700 Output Total 125 3350 Balance 2575 -3350 Weight 149.1 kg Intake: IV 2700 Output: Urine 100 3350 Estimated Blood Loss 25 Other: Voiding Method Indwelling Catheter - Exam Rodas/catheter in place and soft c-collar in place with postoperative surgical dressing in place over anterior cervical spine. Negative for any drainage. Incision appears to be healing well. Sensation is somewhat diminished in the left thumb. However, overall sensation in the hand has improved since prior to surgery. Sensation is equal, symmetric, bilaterally intact throughout the rest of the upper and lower extremities on exam. There is some generalized tenderne ss to ovation over the anterior cervical spine near incision. Nontender to palpation throughout rest of exam. Patient does have some limited range of motion of the bilateral shoulder secondary to referred stiffness and pain in the neck and upper back.4-/5 in all major motor groups in bilateral upper extremities. Radial pulse intact, 2+ bilateral. Cap refill under 3 seconds in digits of upper extremities. Negative Freddie bilaterally. Negative clonus bilaterally. Negative Homans bilaterally. - Labs CBC & Chem 7: 10/19/24 04:42 10/19/24 04:42 Labs: Abnormal Lab Results - Last 24 Hours (Table) 10/19/24 10/19/24 Range/Units 04:42 04:42 WBC 12.61 H (4.50-10.00) X 10*3/uL MCH 24.9 L (27.0-32.0) pg MCHC 30.1 L (32.0-37.0) g/dL Neutrophils # 9.68 H (1.80-7.70) X 10*3/uL Eosinophils # 0.02 L (0.04-0.35) X 10*3/uL Anion Gap 13.60 H (4.00-12.00) mmol/L BUN 6.7 L (9.0-27.0) mg/dL BUN/Creatinine Ratio 8.38 L (12.00-20.00) Ratio Assessment and Plan Assessment: 1. 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 Patient stable but this morning with dressing in place and soft c-collar in place. Pending patient voiding once Rodas is removed and working with therapy, discharge home today. 2. Appreciate medical management 3. Pain management -[place]; gabapentin; Flexeril 4. GI prophylaxis - senna 5. DVT prophylaxis -mechanical 6. PT/OT -weightbearing as tolerated. Soft c-collar in place at all times 7. Encourage incentive spirometer use 8. Discharge planning -discharge home today Time with Patient: Less than 30
--- NOTE | 2024-10-19 10:17 | P.DS ---
Providers Date of admission: 10/18/2024 Expected date of discharge: 10/19/24 Attending physician: Joseph Zhong DO Consults: 10/18/24 14:41 Consult Physician Routine Consulting Provider: Alan Estrada Consult Reason/Comments: medical management s/p C3-C6 ACDF Do you want consulting provider notified?: Yes Primary care physician: Lisset Pina [facility] Course: Date of admission: 10/18/2024 Date of discharge: 10/19/2024 Admission diagnosis: C3-6 SPONDYLOSIS WITH STENOSIS AND RADICULOPATHY; CERVICAL STENOSIS WITH MYELOPATHY; CERVICAL DISC DISORDER; NECK PAIN; BUE WEAKNESS Discharge diagnosis: Same Attending physician: Dr. Zhong Surgical procedures: C3-C6 ACDF Brief history: Patient is a 44-year-old female with a history of C3-C6 spondylosis with stenosis and radiculopathy; cervical stenosis with myelopathy; cervical disc disorder; neck pain and bilateral upper extremity weakness. At this point patient has failed conservative treatment measures and has opted to proceed with a elective C3-C6 ACDF. Hospital course: Details of patient's surgery can be found in operative report. Patient tolerated the procedure well and was subsequently transported to orthope dic floor. Patient's orthopeidc and medical care was provided daily. Patient had daily laboratory tests performed for evaluation of overall blood counts. Patient had daily physical therapy to include strengthening range of motion as well as education with walker ambulation. Patient was noted to have a relatively uneventful postoperative course. Patient reported satisfactory pain control with oral pain medications by postoperative day 1. Patient showed satisfactory progress with physical therapy. Patient moved steadily through the program and had no difficulty meeting the goals by postoperative day 1. Given patient's otherwise satisfactory course and having met physical therapy goals, plan is to discharge patient home on postoperative day 1. Discharge condition/disposition: Patient will be discharged home in stable condition. Discharge medications: Instructions are given on resumption of patient's normal daily medications per primary care recommendation, in addition patient will be prescribed [place]; gabapentin; Flexeril; senna; Duricef. Spine Discharge and Recovery Instructions Date of Surgery: 10/18/2024 Diagnosis: Cervical spondylosis with stenosis Procedure: C3-C6 ACDF Medications: See medication list All medication refills should be obtained through your primary care doctor or your clinic spine surgeon. Please discuss prescription refills at your follow up appointment. Do not call the hospital for medication refills. Activity: Encourage ambulation with assist of walker, Up and about 6-8x daily PT/OT daily work on balance, strength and mobility Up in chair with all meals Shower daily Brace: Use brace when up and about, do not wear in bed or shower Dressing: Leave your dressing in place for a total of 3 days post operatively. Then you may remove your dressing and leave open to air. Keep the area clean and if not able to keep area clean, then cover with sterile gauze and tape. Showering: You may shower 3 days after your procedure allowing soap and water to run over incision. Do not scrub. Do not soak. Blot dry. Follow up: Please confirm a follow up appointment with your surgeon 2 weeks post operatively. Please make an appointment to follow up with your PCP in 1-2 weeks after surgery for evaluation '3 phase, 3-week plan' POST OP WEEKS 1-3 1. Lifting/carrying/pushing/pulling limited to less than 5 pounds. 2. Do not sit for longer than 15 minutes at one time. Get up and walk around. Prolonged sitting is NOT advised. If you lay down, see if you can tolerate laying down on you front (belly side) 3. Walk for periods of 15 minutes = 1 mile but no longer; do it multiple times times each day. 4. Ice your low back after activity. POST OP WEEKS 3-6 1. Lifting limited to less than 20 pounds. 2. Do not sit for longer than 30 minutes at a time. Frequently change positions. Use a sit-to stand workstation or take frequent breaks from sitting if you have returned to work. 3. Walk for 30 minutes each day. If possible, do these three or more times a day POST OP WEEKS 6+ At your 6-week appointment we will give you a physical therapy referral to focus on a core stabilization and strengthening program. You should also work on leg & buttock strengthening, hamstring & quadriceps stretching, and continue a low impact aerobic activity program such as swimming, walking, or riding a stationary bicycle. During the initial 6 weeks after your surgery, you are at the highest risk of re-injuring your spine. You should generally avoid BLT's (bending, lifting and twisting combination motions) and follow the above guidelines to reduce the chance of reinjury. You can anticipate post op appointments in our office at approximately 3 weeks and 6 weeks after your surgery. INCISION CARE: If your incision is not draining you do NOT need to cover it with a dressing. Keep your incision clean, dry and intact. In most cases, we apply skin glue, kash or sutures to the incision at the time of surgery. This will be like a crust or have the appearance of a scab and will fall off in time on its own. The stitches or kash need to be removed at 3 weeks post op appointment. You may begin to shower 3 days after surgery (this allows the glue to little well). However, please avoid scrubbing the incision site or peeling off any of the skin glue. This will ensure optimal healing of your incision. Also, during this time avoid soaking the incision area in water - this includes swimming pools, hot tubs or baths. No ointments, lotions or oils on the incision until your surgeon allows. Leave kash, sutures or glue in place. Neurological dysfunction that comes on suddenly can also be a sign of a stroke. Below some common symptoms of a stroke are listed: B - balance difficulty such as sudden onset walking or leaning to one side - NEW E - eye problem such as sudden double vision or trouble seeing on one side - NEW F - Facial weakness or numbness on one side - NEW A - Arm or leg weakness or numbness on one side - NEW S - Slurred speech or difficulty with word finding - NEW T - Time is BRAIN! Call 911 as soon as you recognize these symptoms Diet: Consume a regular diet rich in vegetables and lean protein such as chicken or fish. You should consume in a ratio of approximately 20% fats|40% carbohydrates|40%protein. Vegetables, sweet potatoes, brown rice or quinoa are examples of good carbohydrates. Chips, white bread, cookies and sweets/sugar are examples of bad carbohydrates. Limit your bad carbs, go wild with good carbs. "Life's Simple 7" Guidelines as per [place] [employer] These will help you reclaim your life after surgery and ict help desk officer in your recovery, keeping in mind your restrictions. (1) Get Active. Physical activity can help people lose weight, control high blood pressure and cholesterol, feel emotionally better, and sleep better. (2) Control Cholesterol. Avoid a diet high in saturated fat, trans fat, & cholesterol. Limit whole milk & cream, ice cream, butter, egg yolks, processed meats (like sausage and hot dogs), and fatty meats. Choose healthy foods that are low in saturated fat, trans fat and cholesterol which include: Fruits and vegetables, fiber rich grain products (like whole grain pasta and brown rice), lean meat such as chicken, fish, nuts, seeds, and legumes. (3) Eat Better. Eat small portions. Shop at the grocery with a list and do not stray from it. Tips for a healthy diet include: Limit sodium intake to less than 1500mg daily, avoid prepackaged, processed, and fast foods, choose a diet rich in fruits, vegetables, and whole grain, high fiber foods, and limit saturated & cholesterol in your diet. (4) Manage Blood Pressure. If you have high blood pressure, you should have a cuff at home so that you can check your blood pressure regularly. Be sure you have a good cuff. An arm one is generally better than a wrist one. Bring the cuff to a doctor's appointment to validate that the measurements that your cuff are taking are accurate. Take your blood pressure twice daily when you are sitting down and relaxing. Record the numbers in a log and bring this log with you to your doctors' appointments. (5) Lose Weight if your BMI is above 25. A healthy BMI is between 19-25. To calculate Your BMI, you may use a Standard BMI Calculator on the NIH BMI website: <www.nhlbi.nih.gov/guidelines/obesity/BMI/bmicalc.htm>. Weigh oneself daily. If you are overweight, set a goal to lose weight. A pound a week loss if needed is a good target. (6) Reduce Blood Sugar. Limit foods and liquids with "added sugars." (Added sugars include sucrose, fructose, glucose, maltose, dextrose, high fructose corn syrup, corn syrup, concentrated fruit juice and honey). (7) Stop Smoking. If you smoke, quitting smoking is one of the best things that you can do for your health. Smoking increases your risk of heart attack, stroke, and peripheral vascular disease, which is a build-up of plaque in your arteries. Please discard all the cigarettes and lighters in your house. Have a plan for what you will do when you have the urge to smoke. Direct and second- hand smoke shortens your life as well as the lives of your family, friends and others around you. For your health and the health of those around you, please consider quitting! Proper Bending Body Mechanics: Maintain a wide stance with one foot slightly in front of the other. Keep your back straight. Bend utilizing the strength in your hips and knees. Do not bend at the waist. Maintain the lifted object at your waist-level close to your body. Avoid lifting weight that causes immediately pain or pain anywhere in the body afterwards. Smoking/Nicotine If there was ever one thing that you could do to increase your overall health, decrease your risk of cardiovascular problems by about 39% the second you make the choice, it is to STOP SMOKING. Your body's most instant gratification is the second you stop smoking. We have all heard the studies, read the articles but it is true, smoking is extremely bad for your overall health, and moreover it is detrimental to your bone health. Nicotine, IN ANY FORM, kills bone cells, prevents your body from healing fractures, and significantly prolongs healing after surgery. In spine surgery specifically, it increases your risk of not healing your bones to create a fusion and increases your risk of having a revision surgery due to this up to 60%. I know it is hard. I know it feels impossible. But there are ways. Take control of your life. We are here to help you through it. And when you are ready, ask us and we can direct you to help if you desire. Use the START Plan to Quit Smoking (please visit the Helpguide.org website l isted below for more information): S = Set a quit date. Choose a date within the next 2 weeks, so you have enough time to prepare without losing your motivation to quit. If you mainly smoke at work, quit on the weekend, so you have a few days to adjust to the change. T = Tell family, friends, and co-workers that you plan to quit. Let your friends and family in on your plan to quit smoking and tell them you need their support and encouragement to stop. Look for a quit cristela who wants to stop smoking as well. You can help each other get through the rough times. A = Anticipate and plan for the challenges you'll face while quitting. Most people who begin smoking again do so within the first 3 months. You can help yourself make it through by preparing ahead for common challenges, such as nicotine withdrawal and cigarette cravings. R = Remove cigarettes and other tobacco products from your home, car, and work. Throw away all your cigarettes (no emergency pack!), lighters, ashtrays, and matches. Wash your clothes and freshen up anything that smells like smoke. Shampoo your car, clean your drapes and carpet, and steam your furniture. T = Talk to your doctor about getting help to quit. Your doctor can prescribe medication to help with withdrawal and suggest other alternatives. If you can't see a doctor, you can get many products over the counter at your local pharmacy or grocery store, including the nicotine patch, nicotine lozenges, and nicotine gum. Resources for Quitting Smoking: <https://www.[place].gov/documents/[facility]/Quit_Tobacco_Resour ces_for_patients_313480_7.pdf> Supplementation: Take recommended dosages of Vitamin D and Calcium to help fortify your bones and help them to heal. See your health maintenance packet for dosages and recommended levels. DVT/VTE prophylaxis: You will be given compression stockings from the hospital. Wear these daily for the first two weeks after surgery. You may take them off at night. You may be prescribed a medication to help thin your blood. Take this as directed. If you are not prescribed this medication, early and frequent ambulation has been shown to be the best prophylaxis to deep vein thrombosis and sequelae related to this event. Assessment: 1. 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 CERVICAL STENOSIS WITH MYELOPATHY 3. CERVICAL DISC DISORDER 4. NECK PAIN 5. BUE WEAKNESS Procedures: C3-C6 ACDF Patient Condition at Discharge: Good Plan - Discharge Summary Discharge Rx Participant: Yes New Discharge Prescriptions: No Action Acetaminophen [Tylenol] 325 cap PO Q4H PRN PRN Reason: Pain Pravastatin Sodium [Pravachol] 20 mg PO HS Gabapentin 600 mg PO TID Omeprazole [PriLOSEC] 40 mg PO DAILY #90 cap Loratadine 10 mg PO DAILY PRN PRN Reason: Allergy Symptoms lisinopriL [Zestril] 10 mg PO QAM Sertraline [Zoloft] 100 mg PO QAM Ondansetron Odt [Zofran ODT] 4 mg PO Q8HR PRN #10 tab PRN Reason: Nausea Cyclobenzaprine [Flexeril] 10 mg PO TID PRN PRN Reason: muscle spasms amLODIPine [Norvasc] 10 mg PO HS Discharge Medication List Acetaminophen [Tylenol] 325 cap PO Q4H PRN 03/04/22 [History] Sertraline [Zoloft] 100 mg PO QAM 04/22/23 [History] lisinopriL [Zestril] 10 mg PO QAM 04/22/23 [History] Ondansetron Odt [Zofran ODT] 4 mg PO Q8HR PRN #10 tab 10/01/23 [Rx] Pravastatin Sodium [Pravachol] 20 mg PO HS 12/16/23 [History] Cyclobenzaprine [Flexeril] 10 mg PO TID PRN 06/13/24 [History] Gabapentin 600 mg PO TID 06/13/24 [History] amLODIPine [Norvasc] 10 mg PO HS 06/13/24 [History] Omeprazole [PriLOSEC] 40 mg PO DAILY #90 cap 08/01/24 [Rx] Loratadine 10 mg PO DAILY PRN 10/12/24 [History] Follow up Appointment(s)/Referral(s): Joseph Zhong DO [Doctor of Osteopathic Medicine] - 2 Weeks Activity/Diet/Wound Care/Special Instructions: Spine Discharge and Recovery Instructions Date of Surgery: 10/18/2024 Diagnosis: Cervical spondylosis with stenosis Procedure: C3-C6 ACDF Medications: See medication list All medication refills should be obtained through your primary care doctor or your clinic spine surgeon. Please discuss prescription refills at your follow up appointment. Do not call the hospital for medication refills. Activity: Encourage ambulation with assist of walker, Up and about 6-8x daily PT/OT daily work on balance, strength and mobility Up in chair with all meals Shower daily Brace: Use brace when up and about, do not wear in bed or shower Dressing: Leave your dressing in place for a total of 3 days post operatively. Then you may remove your dressing and leave open to air. Keep the area clean and if not able to keep area clean, then cover with sterile gauze and tape. Showering: You may shower 3 days after your procedure allowing soap and water to run over incision. Do not scrub. Do not soak. Blot dry. Follow up: Please confirm a follow up appointment with your surgeon 2 weeks post operatively. Please make an appointment to follow up with your PCP in 1-2 weeks after surgery for evaluation '3 phase, 3-week plan' POST OP WEEKS 1-3 1. Lifting/carrying/pushing/pulling limited to less than 5 pounds. 2. Do not sit for longer than 15 minutes at one time. Get up and walk around. Prolonged sitting is NOT advised. If you lay down, see if you can tolerate laying down on you front (belly side) 3. Walk for periods of 15 minutes = 1 mile but no longer; do it multiple times times each day. 4. Ice your low back after activity. POST OP WEEKS 3-6 1. Lifting limited to less than 20 pounds. 2. Do not sit for longer than 30 minutes at a time. Frequently change positions. Use a sit-to stand workstation or take frequent breaks from sitting if you have returned to work. 3. Walk for 30 minutes each day. If possible, do these three or more times a day POST OP WEEKS 6+ At your 6-week appointment we will give you a physical therapy referral to focus on a core stabilization and strengthening program. You should also work on leg & buttock strengthening, hamstring & quadriceps stretching, and continue a low impact aerobic activity program such as swimming, walking, or riding a stationary bicycle. During the initial 6 weeks after your surgery, you are at the highest risk of re-injuring your spine. You should generally avoid BLT's (bending, lifting and twisting combination motions) and follow the above guidelines to reduce the chance of reinjury. You can anticipate post op appointments in our office at approximately 3 weeks and 6 weeks after your surgery. INCISION CARE: If your incision is not draining you do NOT need to cover it with a dressing. Keep your incision clean, dry and intact. In most cases, we apply skin glue, kash or sutures to the incision at the time of surgery. This will be like a crust or have the appearance of a scab and will fall off in time on its own. The stitches or kash need to be removed at 3 weeks post op appointment. You may begin to shower 3 days after surgery (this allows the glue to little well). However, please avoid scrubbing the incision site or peeling off any of the skin glue. This will ensure optimal healing of your incision. Also, during this time avoid soaking the incision area in water - this includes swimming pools, hot tubs or baths. No ointments, lotions or oils on the incision until your surgeon allows. Leave kash, sutures or glue in place. Neurological dysfunction that comes on suddenly can also be a sign of a stroke. Below some common symptoms of a stroke are listed: B - balance difficulty such as sudden onset walking or leaning to one side - NEW E - eye problem such as sudden double vision or trouble seeing on one side - NEW F - Facial weakness or numbness on one side - NEW A - Arm or leg weakness or numbness on one side - NEW S - Slurred speech or difficulty with word finding - NEW T - Time is BRAIN! Call 911 as soon as you recognize these symptoms Diet: Consume a regular diet rich in vegetables and lean protein such as chicken or fish. You should consume in a ratio of approximately 20% fats|40% carbohydrates|40%protein. Vegetables, sweet potatoes, brown rice or quinoa are examples of good carbohydrates. Chips, white bread, cookies and sweets/sugar are examples of bad carbohydrates. Limit your bad carbs, go wild with good carbs. "Life's Simple 7" Guidelines as per [place] [employer] These will help you reclaim your life after surgery and ict help desk officer in your recovery, keeping in mind your restrictions. (1) Get Active. Physical activity can help people lose weight, control high blood pressure and cholesterol, feel emotionally better, and sleep better. (2) Control Cholesterol. Avoid a diet high in saturated fat, trans fat, & cholesterol. Limit whole milk & cream, ice cream, butter, egg yolks, processed meats (like sausage and hot dogs), and fatty meats. Choose healthy foods that are low in saturated fat, trans fat and cholesterol which include: Fruits and vegetables, fiber rich grain products (like whole grain pasta and brown rice), lean meat such as chicken, fish, nuts, seeds, and legumes. (3) Eat Better. Eat small portions. Shop at the grocery with a list and do not stray from it. Tips for a healthy diet include: Limit sodium intake to less than 1500mg daily, avoid prepackaged, processed, and fast foods, choose a diet rich in fruits, vegetables, and whole grain, high fiber foods, and limit saturated & cholesterol in your diet. (4) Manage Blood Pressure. If you have high blood pressure, you should have a cuff at home so that you can check your blood pressure regularly. Be sure you have a good cuff. An arm one is generally better than a wrist one. Bring the cuff to a doctor's appointment to validate that the measurements that your cuff are taking are accurate. Take your blood pressure twice daily when you are sitting down and relaxing. Record the numbers in a log and bring this log with you to your doctors' appointments. (5) Lose Weight if your BMI is above 25. A healthy BMI is between 19-25. To calculate Your BMI, you may use a Standard BMI Calculator on the NIH BMI website: <www.nhlbi.nih.gov/guidelines/obesity/BMI/bmicalc.htm>. Weigh oneself daily. If you are overweight, set a goal to lose weight. A pound a week loss if needed is a good target. (6) Reduce Blood Sugar. Limit foods and liquids with "added sugars." (Added sugars include sucrose, fructose, glucose, maltose, dextrose, high fructose corn syrup, corn syrup, concentrated fruit juice and honey). (7) Stop Smoking. If you smoke, quitting smoking is one of the best things that you can do for your health. Smoking increases your risk of heart attack, stroke, and peripheral vascular disease, which is a build-up of plaque in your arteries. Please discard all the cigarettes and lighters in your house. Have a plan for what you will do when you have the urge to smoke. Direct and second- hand smoke shortens your life as well as the lives of your family, friends and others around you. For your health and the health of those around you, please consider quitting! Proper Bending Body Mechanics: Maintain a wide stance with one foot slightly in front of the other. Keep your back straight. Bend utilizing the strength in your hips and knees. Do not bend at the waist. Maintain the lifted object at your waist-level close to your body. Avoid lifting weight that causes immediately pain or pain anywhere in the body afterwards. Smoking/Nicotine If there was ever one thing that you could do to increase your overall health, decrease your risk of cardiovascular problems by about 39% the second you make the choice, it is to STOP SMOKING. Your body's most instant gratification is the second you stop smoking. We have all heard the studies, read the articles but it is true, smoking is extremely bad for your overall health, and moreover it is detrimental to your bone health. Nicotine, IN ANY FORM, kills bone cells, prevents your body from healing fractures, and significantly prolongs healing after surgery. In spine surgery specifically, it increases your risk of not healing your bones to create a fusion and increases your risk of having a revision surgery due to this up to 60%. I know it is hard. I know it feels impossible. But there are ways. Take contro l of your life. We are here to help you through it. And when you are ready, ask us and we can direct you to help if you desire. Use the START Plan to Quit Smoking (please visit the Helpguide.org website listed below for more information): S = Set a quit date. Choose a date within the next 2 weeks, so you have enough time to prepare without losing your motivation to quit. If you mainly smoke at work, quit on the weekend, so you have a few days to adjust to the change. T = Tell family, friends, and co-workers that you plan to quit. Let your friends and family in on your plan to quit smoking and tell them you need their support and encouragement to stop. Look for a quit cristela who wants to stop smoking as well. You can help each other get through the rough times. A = Anticipate and plan for the challenges you'll face while quitting. Most people who begin smoking again do so within the first 3 months. You can help yourself make it through by preparing ahead for common challenges, such as nicotine withdrawal and cigarette cravings. R = Remove cigarettes and other tobacco products from your home, car, and work. Throw away all your cigarettes (no emergency pack!), lighters, ashtrays, and matches. Wash your clothes and freshen up anything that smells like smoke. Shampoo your car, clean your drapes and carpet, and steam your furniture. T = Talk to your doctor about getting help to quit. Your doctor can prescribe medication to help with withdrawal and suggest other alternatives. If you can't see a doctor, you can get many products over the cou nter at your local pharmacy or grocery store, including the nicotine patch, nicotine lozenges, and nicotine gum. Resources for Quitting Smoking: <https://www.[place].gov/documents/[facility]/Quit_To bacco_Resources_for_patients_313480_7.pdf> Supplementation: Take recommended dosages of Vitamin D and Calcium to help fortify your bones and help them to heal. See your health maintenance packet for dosages and recommended levels. DVT/VTE prophylaxis: You will be given compression stockings from the hospital. Wear these daily for the first two weeks after surgery. You may take them off at night. You may be prescribed a medication to help thin your blood. Take this as directed. If you are not prescribed this medication, early and frequent ambulation has been shown to be the best prophylaxis to deep vein thrombosis and sequelae related to this event. Discharge Disposition: HOME SELF-CARE
[2024-10-19] MEDS: HYDROcodone/APAP 10-325MG 1 EACH TAB PO PRN (10:34)
[2024-10-19 13:07] VITALS: BP 139/90; PULSE 104; RESP 15; TEMP 98.4
[2024-10-19] MEDS: CYCLOBENZAPRINE 10 MG TAB PO SCH (13:34)
[2024-10-19] MEDS: DEXAMETHASONE SOD PHOSPHATE 10 MG/ML 1 ML VIAL IVP STA (13:34)
[2024-10-19] MEDS: oxyCODONE-APAP 5-325MG 1 EACH TAB PO SCH (13:34)
== END 2024-10-19 14:55 | disposition home or self-care (01) ==
LOC: OR 05:37 → 4SSUR 10:35 → OR 10-19 14:55
PROVIDERS: ATTEND Orthopaedic Surgery
DX: M48.02 Spinal stenosis, cervical region (principal); M47.22 Other spondylosis with radiculopathy, cervical region; M47.12 Other spondylosis with myelopathy, cervical region; M50.10 Cervical disc disorder with radiculopathy, unspecified cervical region; F41.9 Anxiety disorder, unspecified; E66.9 Obesity, unspecified; E78.5 Hyperlipidemia, unspecified; I10 Essential (primary) hypertension; F17.210 Nicotine dependence, cigarettes, uncomplicated; Z98.1 Arthrodesis status; Z68.25 Body mass index [BMI] 25.0-25.9, adult; Z82.49 Family history of ischemic heart disease and other diseases of the circulatory system; Z98.51 Tubal ligation status; Z88.3 Allergy status to other anti-infective agents; Z88.2 Allergy status to sulfonamides; Z88.1 Allergy status to other antibiotic agents; Z79.899 Other long term (current) drug therapy
CPT/HCPCS: 97161; 81025; 80048; 85025; 72040; 72125; 22551; 22552; 22846; 22853; 20936; 20930; C1713; J1100 ×2; J0690; J2405; J1171 ×3; J1885 ×2